=== PATIENT | female | born 1970 | race Caucasian/White ===

== ENCOUNTER 2019-08-19 22:11 | Emergency (ER) | payer SELFPAY ==
[2019-08-19 22:24] VITALS: BP 159/84; PULSE 75; RESP 16; TEMP 36.9; O2SAT 94; BMI 39.4
--- NOTE | 2019-08-19 22:31 | XR_ITS ---
WS: [id number] LEFT SHOULDER: 3 VIEW(S) TECHNIQUE: Internal and external rotation with Y view. HISTORY: injury COMPARISON: None available. Spoke sclerosis along the greater tuberosity may be a small impaction fracture. No displacement. Mild AC joint narrowing. XR/XR shoulder LT min 2V* [id number] IMPRESSION: Possible impaction fracture along the greater tuberosity. No displacement.
--- NOTE | 2019-08-19 22:31 | XR_ITS ---
WS: [id number] LEFT ELBOW: 3 VIEW(S) TECHNIQUE: AP, oblique and lateral. HISTORY: injury COMPARISON: None available. No definite fractures are identified. Imaging is suboptimal due to positioning. There is a lucency th rough the medial condyle which is probably related to overlying soft tissue. Joint effusion cannot be excluded as the lateral projection is not optimal. No soft tissue abnormality. XR/XR elbow LT min 3V* [id number] IMPRESSION: 1. Limited evaluation of the elbow and joint due to positioning. If pain kathleen nues recommend repeat elbow radiographs. 2. No definite fractures.
--- NOTE | 2019-08-20 00:52 | W.ED.FALL ---
HPI - Fall General: Chief Complaint: Fall Stated Complaint: fall/left arm pain Time Seen by Provider: 08/20/19 00:45 Source: patient Mode of arrival: ambulatory Limitations: no limitations History of Present Illness: HPI Narrative: 49-year-old female who states she walked out on her porch and tripped on the flute and fell. Patient states she fell on her left elbow has had elbow pain since then. States pain is sharp in nature and rates it a 6 out of 10. She has mild shoulder pain. She is able to move her arm. She denies hitting her head. Denies any other injuries. complaint: fall Onset (ago): hour(s) Fall from: standing Fall witnessed: yes, by family Place fall occurred: home Loss of consciousness: None Associated symptoms-after fall: Denies abdominal pain, chest pain or headache(s) Review of Systems Const: Denies: fever, chills, body aches or change in appetite Eyes: Denies: blurry vision or eye discomfort ENMT: Denies: throat pain or dental pain Card: Denies: chest pain Resp: Denies: shortness of breath GI: Denies: abdominal pain, nausea, vomiting or diarrhea : Denies: painful urination Musc: Reports: joint pain Skin/Breast: Denies: rash Neuro: Denies: headache Psych: Denies: depression Morgan/Lymph: Denies: easy bruising All/Imm: Denies: hives PFS ED PFSH: Social History Smoking and tobacco status: never smoked Physical Exam Const: COMMON NORMALS: no apparent distress, oriented x3 and healthy appearing HENMT: COMMON NORMALS: normocephalic and head/scalp atraumatic HEAD & SCALP: normocephalic and atraumatic Eye: COMMON NORMALS: PERRL and EOMs intact bilaterally PUPIL: Yes PERRL Neck/C-Spine: COMMON NORMALS: full ROM and supple Chest: COMMONS NORMALS: inspection of chest normal and palpation of chest normal Resp: COMMON NORMALS: normal respiratory effort, no retractions, no use of accessory muscles and clear to auscultation bilaterally AUSCULTATION: clear to auscultation bilaterally Cardio: COMMON NORMALS: regular rate, regular rhythm and no murmurs RATE: regular rate RHYTHM: regular rhythm GI: COMMON NORMALS: normal to inspection, nondistended, normoactive bowel sounds, soft to palpation, non-tender and no masses PALPATION: Yes soft Extremity: COMMON NORMALS: normal to inspection NARRATIVE EXTREMITY EXAM: Slight tenderness over left elbow. Patient has full range of motion with slight pain. No obvious fracture. Distal sensation and pulses intact Neuro: COMMON NORMALS: oriented x3, moves all extremities and no focal motor deficits Psych: COMMON NORMALS: mental status grossly normal, thought process normal and cooperative THOUGHT PROCESS: normal thought process Skin: COMMON NORMALS: no rashes or lesions noted and no wounds GENERAL SKIN EXAM: no rashes or lesions noted Course Vital Signs: Vital signs: Vital Signs Temperature 98.4 F 08/19/19 22:24 Pulse Rate 75 08/19/19 22:24 Respiratory Rate 16 08/19/19 22:24 Blood Pressure 159/84 08/19/19 22:24 Pulse Oximetry 94 08/19/19 22:24 MDM - Fall MDM Narrative: Medical decision making narrative: Patient presents here with elbow contusion from a fall. Patient's x-ray here showed no fracture and she is well-appearing here. Patient's shoulder x-ray is normal as well. Patient is to ice along with Yanick wrap and is to follow-up with primary care doctor in 3 to 5 days return if worsening. Patient understands agrees to plan. Imaging Data^: xr L shoulder: Attestation: I personally reviewed and interpreted this imaging study as follows: My impression: no acute abnormality xr L elbow: Attestation: I personally reviewed and interpreted this imaging study as follows: Radiologist's impression: no acute fx Discharge Plan Discharge Patient Disposition: Home, Self-Care Clinical Impression: Contusion of elbow, left Qualifiers: Encounter type: initial encounter Qualified Code(s): S50.02XA - Contusion of left elbow, initial encounter Condition: Stable Prescriptions: [place] 5-325 mg tablet 1 tab PO Q6H PRN (Reason: pain) Qty: 10 RF: 0 No Action ropinirole 2 mg Tablet Extended Release 24 Hr 2 mg PO DAILY RF: 0 Discharge Orders: Discharge Order (Routine); Ordered 08/20/19 Ordered By: Zuly Rossi Referrals: Jin Reina MD [Primary Care Provider] - 1-3 days Discharge Diet: Advance as tolerated Discharge Activity: Resume usual activity Patient Instructions: Contusion in Adults (ED), Elbow Sprain (ED) Coding Level of Care Code ED Intensive Care Specialist for Uyen Chapman
[2019-08-20] MEDS: HYDROcodone-acetaminophen 5-325 mg Tablet 1 TAB PO (01:06)
[2019-08-20 01:21] VITALS: BP 148/77; PULSE 80; RESP 16; O2SAT 97
== END 2019-08-20 01:29 | disposition home or self-care (01) ==
PROVIDERS: Emergency Provider Emergency Medicine; PCP Family Medicine
DX: S50.02XA Contusion of left elbow, initial encounter (principal); W01.0XXA Fall on same level from slipping, tripping and stumbling without subsequent striking against object, initial encounter
CPT/HCPCS: 12345; 73030; 73080; 99281; 99283

== ENCOUNTER → 2020-04-02 15:00 | Outpatient (BNVA) | payer SELFPAY | PROVIDERS: PCP Family Medicine | DX: M79.672 Pain in left foot (principal) | CPT/HCPCS: 73630 ==

== ENCOUNTER 2020-04-19 15:09 | Emergency (ER) | payer SELFPAY ==
[2020-04-19 15:43] VITALS: BP 136/92; PULSE 91; RESP 14; TEMP 36.2; O2SAT 98; BMI 41.2
[2020-04-19 16:42] VITALS: BP 170/80; PULSE 86; O2SAT 97
--- NOTE | 2020-04-19 16:57 | ED_ITS ---
HPI - Abdominal Pain General: Chief Complaint: Abdominal Pain Stated Complaint: Stomach pains/ cramps Time Seen by Provider: 04/19/20 16:35 History of Present Illness: HPI narrative: The patient is a 50-year-old female who comes to the ER complaining of lower abdominal pain. She says she had a urine test at an urgent care center approximately a week ago which was normal. She says the pain has been approximately a week. She says she has had a hysterectomy and appendix removed when she was a kid and hysterectomy more recently. She says the pain feels like she is having a baby. She has a history of kidney stones as well. Denies nausea, vomiting, and diarrhea MD elicited complaint: abdominal pain Pertinent past history: kidney stones Pain Consistency: colicky Severity: mild Quality: cramping Exacerbating factors: nothing Relieving factors: nothing Associated Symptoms: Reports no associated symptoms; Denies GI cramping and diarrhea Review of Systems General: Reports: 10 or more systems reviewed and unremarkable except in HPI and below Const: Denies: fatigue Eyes: Denies: change in vision, blurry vision or eye redness ENMT: Denies: throat pain, swelling of lips/tongue, ear or mastoid pain or nasal congestion Card: Denies: chest pain, palpitations, irregular heart rhythm, edema, dyspnea on exertion or orthopnea Resp: Denies: dyspnea, productive cough or non-productive cough GI: Denies: abdominal pain, diarrhea or GI cramping : Denies: flank pain, difficulty voiding, urinary frequency or urinary urgency Musc: Denies: neck pain, back pain, extremity pain, joint pain, joint redness, limited range of motion or muscle weakness Skin/Breast: Denies: rash, pruritus, erythema, skin pain or skin tenderness Neuro: Denies: headache(s), numbness in extremities, weakness in extremities, sensory changes, difficulty walking, dizziness, confusion or Slurred speech present Psych: Denies: anxiety or depression Endo: Denies: polyuria All/Imm: Denies: urticaria, throat swelling or tongue swelling PFSH ED PFSH: Social History (Updated 04/02/20 @ 14:44 by GRETCHEN Ambrocio) Smoking and tobacco status: never smoked Alcohol intake: never Physical Exam Const: COMMON NORMALS: no acute distress, average body habitus, patient oriented x3, no limitations, healthy appearing, alert and well nourished GENERAL APPEARANCE: cooperative, comfortable, well kempt and well developed ORIENTATION/CONSCIOUSNESS: Yes awake, Yes oriented to person, Yes oriented to place and Yes oriented to time HENMT: COMMON NORMALS: normocephalic, external ears normal and Normal external nose present HEAD & SCALP: normal to inspection and normocephalic NOSE: Normal external nose present EXTERNAL EAR: Yes external ears normal MOUTH: Normal oral and palatal mucosa present THROAT: posterior oropharynx normal Eye: COMMON NORMALS: Equal, round and reactive pupils present and EOMs intact bilaterally GENERAL EYE: appearance normal, both eyes and all related structures PUPIL: Yes Equal, round and reactive pupils present Neck/C-Spine: COMMON NORMALS: full ROM, no lymphadenopathy, no meningeal signs and no JVD GENERAL: Yes normal visual inspection Lymph: LYMPHATIC: no lymphadenopathy noted Chest: COMMONS NORMALS: normal inspection of the chest and normal palpation of entire chest wall Resp: COMMON NORMALS: normal respiratory effort, No retractions, No use of accessory muscles, clear to auscultation bilaterally and percussion normal EFFORT & INSPECTION: Yes able to speak in complete sentences AUSCULTATION: clear to auscultation bilaterally PERCUSSION: percussion normal Cardio: COMMON NORMALS: no JVD, regular rate, regular rhythm, S1 normal heart sound present, S2 normal heart sound present and Peripheral pulses 2+ throughout RATE: regular rate RHYTHM: regular rhythm HEART SOUNDS: S1 normal heart sound present and S2 normal heart sound present PERIPHERAL PULSES: Peripheral pulses 2+ throughout GI: COMMON NORMALS: Normal to inspection, nondistended, normoactive bowel sounds present, Soft to palpation, non-tender and no masses INSPECTION: Yes normal to inspection PALPATION: Yes Soft to palpation : COMMON NORMALS: Yes no CVA tenderness BLADDER/KIDNEY EXAM: Yes no CVA tenderness Back/Pelvis: COMMON NORMALS: no CVA tenderness, thoracic and lumbar spine normal to inspection, no thoracic nor lumbar tenderness and thoraco-lumbar ROM normal Extremity: COMMON NORMALS: normal to inspection, full ROM, capillary refill normal, no joint enlargement and no pedal edema GENERAL: Yes normal exam except as noted Neuro: COMMON NORMALS: patient oriented x3, CN's II-XII intact bilaterally, moves all extremities, no focal motor deficits, no sensory deficits noted and gait normal SENSORIUM/ORIENTATION: Yes alert, Yes oriented to person, Yes oriented to place and Yes oriented to time MENINGEAL SIGNS: Yes no meningeal signs Psych: COMMON NORMALS: mental status grossly normal, Normal thought process present, cooperative, normal affect and speech normal APPEARANCE: Yes well kempt ATTITUDE: Yes calm SPEECH: Yes normal speech THOUGHT PROCESS: Normal thought process present Skin: COMMON NORMALS: no rashes or lesions noted GENERAL SKIN EXAM: no rashes or lesions noted Course Vital Signs: Vital signs: Vital Signs Temperature 97.1 F L 04/19/20 15:43 Pulse Rate 84 04/19/20 17:30 Respiratory Rate 14 04/19/20 15:43 Blood Pressure 170/80 04/19/20 16:42 Pulse Oximetry 98 04/19/20 17:30 MDM - Abdominal Pain MDM Narrative: Medical decision making narrative: The patient came in with lower left quadrant abdominal pain. CT shows diverticulitis which is consistent with her symptoms. She will be given Cipro and Flagyl and recommended follow-up with her primary care in 3 to 5 days. Return to the ER with worsening symptoms. Lab Data: Labs: Lab Results 04/19/20 04/19/20 04/19/20 Range/Units 17:22 17:22 17:22 WBC 10.1 H (4.0-10.0) 10^3/ uL RBC 4.34 (4.1-5.3) 10^6/u L Hgb 13.0 (11.5-15.3) g/dL Hct 41.2 (37.0-47.0) % MCV 94.9 (81-99) fL MCH 30.0 (28.0-34.0) pg MCHC 31.6 (30.0-36.0) g/dL RDW 13.2 (12.1-15.1) % Plt Count 375 (130-400) 10^3/c mm MPV 9.7 (7.4-10.4) fL Neut % (Auto) 68.1 % Lymph % (Auto) 21.4 % [place] % (Auto) 7.2 % Eos % (Auto) 2.3 % Baso % (Auto) 0.6 % Neut # (Auto) 6.89 (1.8-7.7) 10^3/u L Lymph # (Auto) 2.2 (0.8-4.8) 10^3/u L [place] # (Auto) 0.7 (0.2-0.9) 10^3/u L Eos # (Auto) 0.2 (0.0-0.8) 10^3/u L Baso # (Auto) 0.1 (0.0-0.1) 10^3/u L Nucleated RBC % (a uto) 0 % Nucleated RBCs # 0.0 /100WBC Sodium 139 (136-145) mmol/L Potassium 3.8 (3.5-5.1) mmol/L Chloride 101 (98-107) mmol/L Carbon Dioxide 28 (22-29) mmol/L Anion Gap 13.8 (5-19) BUN 8 (6-20) mg/dL Creatinine 0.6 (0.5-0.9) mg/dL GFR Calculation 105.8 (90-130) mL/min Glucose 143 H (65-115) mg/dL Calculated Osmolal ity 289 (285-295) mOsm/k g Lactate 1.5 (0.5-2.2) mmol/L Calcium 9.3 (8.5-10.5) mg/dL Total Bilirubin 0.3 (0.15-1.2) mg/dL AST 21 (0-32) U/L ALT 20 (0-33) U/L Alkaline Phosphata se 116 H (35-105) IU/L Total Protein 7.5 (6.6-8.7) g/dL Albumin 3.8 (3.5-5.2) g/dL Globulin 3.7 (1.3-4.6) g/dL Lipase 17 (13-60) U/L HCG, Qual (Negative) Urine Color (Yellow) Urine Appearance (CLEAR) Urine pH (5-7) Ur Specific Gravit y (1.005-1.030) Urine Protein (Negative) Urine Glucose (UA) (Normal) Urine Ketones (Negative) Urine Blood (Negative) Urine Nitrate (Negative) Urine Bilirubin (Negative) Urine Urobilinogen (Negative) mg/dL Ur Leukocyte Elaina ase (Negative) Urine RBC (0-2) /hpf Urine WBC (0-5) /hpf Ur Squamous Epith Cells (0-5) /hpf Amorphous Sediment /hpf Urine Bacteria (NONE) /hpf Urine Mucus /hpf 04/19/20 04/19/20 Range/Units 18:15 18:15 WBC (4.0-10.0) 10^3/ uL RBC (4.1-5.3) 10^6/u L Hgb (11.5-15.3) g/dL Hct (37.0-47.0) % MCV (81-99) fL MCH (28.0-34.0) pg MCHC (30.0-36.0) g/dL RDW (12.1-15.1) % Plt Count (130-400) 10^3/c mm MPV (7.4-10.4) fL Neut % (Auto) % Lymph % (Auto) % [place] % (Auto) % Eos % (Auto) % Baso % (Auto) % Neut # (Auto) (1.8-7.7) 10^3/u L Lymph # (Auto) (0.8-4.8) 10^3/u L [place] # (Auto) (0.2-0.9) 10^3/u L Eos # (Auto) (0.0-0.8) 10^3/u L Baso # (Auto) (0.0-0.1) 10^3/u L Nucleated RBC % (a uto) % Nucleated RBCs # /100WBC Sodium (136-145) mmol/L Potassium (3.5-5.1) mmol/L Chloride (98-107) mmol/L Carbon Dioxide (22-29) mmol/L Anion Gap (5-19) BUN (6-20) mg/dL Creatinine (0.5-0.9) mg/dL GFR Calculation (90-130) mL/min Glucose (65-115) mg/dL Calculated Osmolal ity (285-295) mOsm/k g Lactate (0.5-2.2) mmol/L Calcium (8.5-10.5) mg/dL Total Bilirubin (0.15-1.2) mg/dL AST (0-32) U/L ALT (0-33) U/L Alkaline Phosphata se (35-105) IU/L Total Protein (6.6-8.7) g/dL Albumin (3.5-5.2) g/dL Globulin (1.3-4.6) g/dL Lipase (13-60) U/L HCG, Qual Negative (Negative) Urine Color Yellow (Yellow) Urine Appearance Cloudy (CLEAR) Urine pH 7 (5-7) Ur Specific Gravit y 1.015 (1.005-1.030) Urine Protein Neg (Negative) Urine Glucose (UA) Norm (Normal) Urine Ketones Negative (Negative) Urine Blood Neg (Negative) Urine Nitrate Negative (Negative) Urine Bilirubin Neg (Negative) Urine Urobilinogen Norm (Negative) mg/dL Ur Leukocyte Elaina ase Negative (Negative) Urine RBC None (0-2) /hpf Urine WBC None (0-5) /hpf Ur Squamous Epith Cells 0-4 H (0-5) /hpf Amorphous Sediment 2+ /hpf Urine Bacteria Trace (NONE) /hpf Urine Mucus Trace /hpf Discharge Plan Discharge Patient Disposition: Home Clinical Impression: Diverticulitis Condition: Stable Prescriptions: New ciprofloxacin HCl 500 mg tablet 500 mg PO Q12H Qty: 20 RF: 0 Flagyl 500 mg tablet 500 mg PO Q8H 10 Days Qty: 30 RF: 0 No Action ropinirole 2 mg Tablet Extended Release 24 Hr 2 mg PO DAILY RF: 0 Discharge Orders: Discharge ED (Routine); Ordered 04/19/20 Ordered By: Pal Almeida Referrals: Jin Reina MD [Primary Care Provider] - Discharge Diet: Advance as tolerated Discharge Activity: Resume usual activity Patient Instructions: Diverticulitis (ED) Activity Restrictions/Additional Instructions: You have diverticulitis of your colon. Please take antibiotics as directed and follow-up with your primary care physician in 3 to 5 days to monitor improvement of symptoms. Return to the ER with worsening symptoms. Coding Level of Care Code ED Outpatient Admitting Clerk for Bradyg Fwd Exam Comprehensive
[2020-04-19] MEDS: ketorolac 30 mg/mL INJ 15 MG IVP (17:23)
[2020-04-19 17:30] VITALS: PULSE 84; O2SAT 98
[2020-04-19 18:06] LABS: Basophils # 0.1 10^3/uL (0.0-0.1); Basophils % 0.6 %; Eosinophils # 0.2 10^3/uL (0.0-0.8); Eosinophils % 2.3 %; Hematocrit 41.2 % (37.0-47.0); Lymphocytes # 2.2 10^3/uL (0.8-4.8); Lymphocytes % 21.4 %; Mean Corpuscular HGB Conc 31.6 g/dL (30.0-36.0); Mean Corpuscular Volume 94.9 fL (81-99); Mean Platelet Volume 9.7 fL (7.4-10.4); Monocytes # 0.7 10^3/uL (0.2-0.9); Monocytes % 7.2 %; Neutrophils # 6.89 10^3/uL (1.8-7.7); Neutrophils % 68.1 %; Nucleated Red Blood Cells % 0 %; Platelet Count 375 10^3/cmm (130-400); Red Blood Count 4.34 10^6/uL (4.1-5.3); Red Cell Distribution Width 13.2 % (12.1-15.1); White Blood Count 10.1 10^3/uL (4.0-10.0)
[2020-04-19 18:21] LABS: Lactate (Lactic Acid level) 1.5 mmol/L (0.5-2.2)
[2020-04-19 18:24] LABS: Alanine Aminotransferase 20 U/L (0-33); Albumin Level 3.8 g/dL (3.5-5.2); Alkaline Phosphatase 116 IU/L (35-105); Anion Gap 13.8 (5-19); Aspartate Amino Transferase 21 U/L (0-32); Blood Urea Nitrogen 8 mg/dL (6-20); Calcium 9.3 mg/dL (8.5-10.5); Carbon Dioxide 28 mmol/L (22-29); Chloride 101 mmol/L (98-107); Globulin 3.7 g/dL (1.3-4.6); Glomerular Filtration Rate 105.8 mL/min (90-130); Glucose 143 mg/dL (65-115); Lipase 17 U/L (13-60); Osmolality Calculated 289 mOsm/kg (285-295); Potassium 3.8 mmol/L (3.5-5.1); Sodium 139 mmol/L (136-145); Total Bilirubin 0.3 mg/dL (0.15-1.2); Total Protein 7.5 g/dL (6.6-8.7)
[2020-04-19 18:26] LABS: Urine Appearance Cloudy (CLEAR); Urine Color Yellow (Yellow)
[2020-04-19 18:27] LABS: Add Urine Microscopic? YES; Bilirubin Urine Neg (Negative); Blood Urine Neg (Negative); Glucose Urine UA Norm (Normal); HCG Qualitative Urine. Negative (Negative); Ketones Urine Negative (Negative); Leukocyte Esterase Urine Negative (Negative); Nitrate Urine Negative (Negative); Protein Urine Neg (Negative); Specific Gravity, Urine 1.015 (1.005-1.030); Urobilinogen Urine Norm (Negative); pH Urine 7 (5-7)
[2020-04-19 18:41] LABS: Add Urine Culture? No; Amorphous Sediment Urine 2+ /hpf; Bacteria Urine TRACE /hpf; Mucus Urine TRACE /hpf; Squamous Epithelial Cell Urine 0-4 /hpf (0-5)
--- NOTE | 2020-04-19 18:42 | CTR_ITS ---
PROCEDURE INFORMATION: Exam: CT Abdomen And Pelvis With Contrast Exam date and time: 04/19/2020 6:53 PM Age: 50 years old Clinical indication: Abdominal pain; Localized; Lower; Prior surgery; Surgery date: 6+ months; Surgery type: Appy, hyst, gb TECHNIQUE: Imaging protocol: Computed tomography of the abdomen and pelvis with intravenous contrast. Total images: 268 Radiation optimization: All CT scans at this facility use at least one of these dose optimization techniques: automated exposure control; mA and/or kV adjustment per patient size (includes targeted exams where dose is matched to clinical indication); or iterative reconstruction. Contrast material: OMNI 300; Contrast volume: 95 ml; Contrast route: INTRAVENOUS (IV); COMPARISON: CT abdomen pelvis w con* [id number] 07/16/2015 10:28 AM RADIATION DOSE METRICS: Total DLP (mGy-cm): 1874.73 FINDINGS: Lungs: Stable tiny subpleural pulmonary nodules lateral segment right middle lobe, lateral basal segment left lower lobe, and right lower lobe stable since 2015. No follow-up recommended. Liver: Diffuse fatty infiltration of the liver with hepatomegaly. No visible hepatic mass or cystic structure. Gallbladder and bile ducts: Status post cholecystectomy. Pancreas: Pancreas unremarkable. No visible pancreatic ductal ectasia. Spleen: Spleen unremarkable. Adrenal glands: Normal. No mass. Kidneys and ureters: Normal. No hydronephrosis. No visible nephrolithiasis. No visible ureterolithiasis. Stomach and bowel: Examination reveals low-grade uncomplicated acute sigmoid diverticulitis involving the mid sigmoid colon. No diverticular abscess or extraluminal gas. Mild pericolonic fat inflammatory phlegmonous response. Nonobstructive bowel pattern. No visible significant adynamic or reactive ileus. Appendix: Status post appendectomy. Intraperitoneal space: No visible intraperitoneal ascites or pneumoperitoneum. Vasculature: The abdominal aorta is nonaneurysmal. Mild arterial sclerotic disease. Lymph nodes: No current visible evidence of active mesenteric or retroperitoneal lymphadenopathy. Urinary bladder: Urinary bladder unremarkable. Reproductive: Status post hysterectomy. Simple left ovarian cyst. No follow-up recommended. Bones/joints: No visible active or acute osseous pathology. Soft tissues: Obesity. CT/CT abdomen pelvis w con* [id number] IMPRESSION: 1. Examination reveals low-grade uncomplicated acute sigmoid diverticulitis involving the mid sigmoid colon. No diverticular abscess or extraluminal gas. Mild pericolonic fat inflammatory phlegmonous response. 2. Diffuse fatty infiltration of the liver with hepatomegaly. Radiation Dose CTDIVOL = (mGy): DLP = 1874.73 (mGy-cm)
[2020-04-19] MEDS: iohexol 300 mg/mL 100 mL Btl IV (18:59)
[2020-04-19] MEDS: ciprofloxacin 500 mg Tablet PO (19:56)
[2020-04-19] MEDS: metroNIDAZOLE 500 MG Tablet PO (19:56)
[2020-04-19 19:57] VITALS: BP 132/87; PULSE 87; RESP 18; O2SAT 98
== END 2020-04-19 19:58 | disposition home or self-care (01) ==
PROVIDERS: Emergency Provider Family Medicine; PCP Family Medicine
DX: K57.92 Diverticulitis of intestine, part unspecified, without perforation or abscess without bleeding (principal)
CPT/HCPCS: 12345; 74177; 80053; 81000; 81001; 81025; 83605; 83690; 85025; 96374; 99282; 99283; J1885; Q9967

== ENCOUNTER 2020-10-13 22:02 | Emergency (ER) | payer SELFPAY ==
[2020-10-13 22:59] VITALS: BP 155/77; PULSE 83; RESP 18; TEMP 36.8; O2SAT 96; BMI 39.5
--- NOTE | 2020-10-13 23:31 | ED_ITS ---
HPI - Extremity Problem General: Chief complaint: Extremity Problem,Nontraumatic Stated complaint: GEN MALAISE, LEGS CRAMPING, NAUSEA Time Seen by Provider: 10/13/20 23:06 History of Present Illness: HPI Narrative: Patient comes in with bilateral lower extremity pain and restlessness. Patient reports history of restless leg syndrome. Patient was out of her medication yesterday and was not able to take the medicine last night, patient reports a real hard night where she was unable to sleep or get any rest. Patient ended up having to leave work early today due to the pain and discomfort in her legs. Patient went to the pharmacy and picked up her medication took some medicine and then rested until this evening. Patient comes in this evening due to continued discomfort in the lower extremities. Patient was concerned for a blood clot. Patient denies any other injuries or illness. Review of Systems General: Reports: 10 or more systems reviewed and unremarkable except in HPI and below Musc: Reports: other (Bilateral lower leg pain and restlessness) [facility] ED PFSH: Surgical History History of appendectomy History of cholecystectomy History of foot operation History of hysterectomy History of tubal ligation Family History Grandfather Cancer Stroke Father Cancer Chronic kidney disease (CKD) Lung disease Grandmother Diabetes Mother Diabetes Hypertension Social History Smoking and tobacco status: never smoked Alcohol intake: never Physical Exam Const: COMMON NORMALS: no acute distress and patient oriented x3 GENERAL APPEARANCE: cooperative HENMT: COMMON NORMALS: normocephalic, TM's normal bilaterally and Normal external nose present HEAD & SCALP: normal to inspection and normocephalic NOSE: Normal external nose present TYMPANIC MEMBRANE: TM's normal bilaterally MOUTH: Normal oral and palatal mucosa present THROAT: posterior oropharynx normal Eye: GENERAL EYE: appearance normal, both eyes and all related structures Neck/C-Spine: COMMON NORMALS: full ROM Lymph: LYMPHATIC: no lymphadenopathy noted Chest: COMMONS NORMALS: normal inspection of the chest Resp: COMMON NORMALS: normal respiratory effort EFFORT & INSPECTION: Yes able to speak in complete sentences Cardio: COMMON NORMALS: regular rate and regular rhythm RATE: regular rate RHYTHM: regular rhythm GI: COMMON NORMALS: non-tender Back/Pelvis: COMMON NORMALS: thoracic and lumbar spine normal to inspection Extremity: COMMON NORMALS: normal to inspection Neuro: COMMON NORMALS: patient oriented x3 and moves all extremities Psych: COMMON NORMALS: mental status grossly normal and cooperative Skin: COMMON NORMALS: no rashes or lesions noted GENERAL SKIN EXAM: no rashes or lesions noted Course Vital Signs: Vital signs: Vital Signs Temperature 98.2 F 10/13/20 22:59 Pulse Rate 83 10/13/20 22:59 Respiratory Rate 18 10/13/20 22:59 Blood Pressure 155/77 10/13/20 22:59 Pulse Oximetry 96 10/13/20 22:59 MDM - Extremity (Nontraumatic) MDM Narrative: Medical decision making narrative: Patient comes in today with complaints of bilateral lower extremity pain. Patient states that she missed a day of her ropinirole and since then she has aggravating leg pain. Patient was unable to stay at work today due to the pain. No mid spine tenderness was noted on palpation. No paraspinous muscle tenderness was noted. Patient moves extremities well. No signs of redness or swelling is noted to either bilateral lower extremities. Vital signs are normal. Differential diagnosis includes but not limited to neuropathy, restless leg syndrome, electrolyte disturbance. CBC and CMP were unremarkable. Urinalysis was clear. Patient made a comment about some urinary difficulty and that was why urinalysis was performed. Patient was given 1 hydrocodone with improvement of her leg pain and discomfort. Believe patient probably has a flare of her restless leg syndrome or some mild winston ropathy. Recommended patient follow-up with primary care and possible referral to neurology. Patient stated understanding and agreed to plan. Lab Data: Labs: Lab Results 10/13/20 10/13/20 10/13/20 Range/Units 22:49 22:49 23:49 WBC 8.6 (4.0-10.0) 10^3/ uL RBC 4.20 (4.1-5.3) 10^6/u L Hgb 12.6 (11.5-15.3) g/dL Hct 38.9 (37.0-47.0) % MCV 92.6 (81-99) fL MCH 30.0 (28.0-34.0) pg MCHC 32.4 (30.0-36.0) g/dL RDW 13.1 (12.1-15.1) % Plt Count 362 (130-400) 10^3/c mm MPV 9.5 (7.4-10.4) fL Neut % (Auto) 62.3 % Lymph % (Auto) 26.5 % [place] % (Auto) 6.2 % Eos % (Auto) 3.9 % Baso % (Auto) 0.6 % Neut # (Auto) 5.35 (1.8-7.7) 10^3/u L Lymph # (Auto) 2.3 (0.8-4.8) 10^3/u L [place] # (Auto) 0.5 (0.2-0.9) 10^3/u L Eos # (Auto) 0.3 (0.0-0.8) 10^3/u L Baso # (Auto) 0.1 (0.0-0.1) 10^3/u L Nucleated RBC % (a uto) 0 % Nucleated RBCs # 0.0 /100WBC Sodium 135 L (136-145) mmol/L Potassium 4.0 (3.5-5.1) mmol/L Chloride 102 (98-107) mmol/L Carbon Dioxide 25 (22-29) mmol/L Anion Gap 12.0 (5-19) BUN 6 (6-20) mg/dL Creatinine 0.6 (0.5-0.9) mg/dL GFR Calculation 105.8 (90-130) mL/min Glucose 127 H (65-115) mg/dL Calculated Osmolal ity 279 L (285-295) mOsm/k g Calcium 9.1 (8.5-10.5) mg/dL Total Bilirubin 0.4 (0.15-1.2) mg/dL AST 29 (0-32) U/L ALT 27 (0-33) U/L Alkaline Phosphata se 109 H (35-105) IU/L Creatine Kinase 68 (26-192) U/L Total Protein 6.8 (6.6-8.7) g/dL Albumin 3.7 (3.5-5.2) g/dL Globulin 3.1 (1.3-4.6) g/dL Urine Color Yellow (Yellow) Urine Appearance Clear (CLEAR) Urine pH 5 (5-7) Ur Specific Gravit y 1.020 (1.005-1.030) Urine Protein Neg (Negative) Urine Glucose (UA) Norm (Normal) Urine Ketones Negative (Negative) Urine Blood Neg (Negative) Urine Nitrate Negative (Negative) Urine Bilirubin Neg (Negative) Urine Urobilinogen Norm (Negative) mg/dL Ur Leukocyte Elaina ase Negative (Negative) Discharge Plan Discharge Patient Disposition: Home Clinical Impression: Leg pain, bilateral Condition: Stable Prescriptions: Discontinued amoxicillin-pot clavulanate [Augmentin] 875-125 mg tablet 1 tab PO Q12H Qty: 20 RF: 0 No Action ropinirole 2 mg Tablet Extended Release 24 Hr 2 mg PO DAILY RF: 0 Discharge Orders: Discharge ED (Routine); Ordered 10/14/20 Ordered By: Isacc Stallings Referrals: Jin Reina MD [Primary Care Provider] - Discharge Diet: Usual diet Discharge Activity: Increase activity as tolerated Patient Instructions: Musculoskeletal Pain (ED), Opioid Safety Activity Restrictions/Additional Instructions: Maintain normal activity. Use acetaminophen for breakthrough pain. Continue ropinirole as directed. Follow-up with primary care for further instruction and treatment. Return to the emergency room for new concerns. Coding Level of Care Code ED [place] Manager for Uyen Fwd Exam Comprehensive
[2020-10-13 23:54] LABS: Basophils # 0.1 10^3/uL (0.0-0.1); Basophils % 0.6 %; Eosinophils # 0.3 10^3/uL (0.0-0.8); Eosinophils % 3.9 %; Hematocrit 38.9 % (37.0-47.0); Hemoglobin 12.6 g/dL (11.5-15.3); Lymphocytes # 2.3 10^3/uL (0.8-4.8); Lymphocytes % 26.5 %; Mean Corpuscular HGB Conc 32.4 g/dL (30.0-36.0); Mean Corpuscular Volume 92.6 fL (81-99); Mean Platelet Volume 9.5 fL (7.4-10.4); Monocytes # 0.5 10^3/uL (0.2-0.9); Monocytes % 6.2 %; Neutrophils # 5.35 10^3/uL (1.8-7.7); Neutrophils % 62.3 %; Nucleated Red Blood Cells % 0 %; Platelet Count 362 10^3/cmm (130-400); Red Cell Distribution Width 13.1 % (12.1-15.1); White Blood Count 8.6 10^3/uL (4.0-10.0)
[2020-10-13] MEDS: HYDROcodone-acetaminophen 5-325 mg Tablet 1 TAB PO (23:59)
[2020-10-14 00:18] LABS: Alanine Aminotransferase 27 U/L (0-33); Albumin Level 3.7 g/dL (3.5-5.2); Alkaline Phosphatase 109 IU/L (35-105); Aspartate Amino Transferase 29 U/L (0-32); Blood Urea Nitrogen 6 mg/dL (6-20); Calcium 9.1 mg/dL (8.5-10.5); Carbon Dioxide 25 mmol/L (22-29); Chloride 102 mmol/L (98-107); Creatine Phosphokinase 68 U/L (26-192); Globulin 3.1 g/dL (1.3-4.6); Glomerular Filtration Rate 105.8 mL/min (90-130); Glucose 127 mg/dL (65-115); Osmolality Calculated 279 mOsm/kg (285-295); Sodium 135 mmol/L (136-145); Total Bilirubin 0.4 mg/dL (0.15-1.2); Total Protein 6.8 g/dL (6.6-8.7)
[2020-10-14 00:45] LABS: Add Urine Microscopic? NO; Charge for UA Resulting for Rev
[2020-10-14 00:46] LABS: Bilirubin Urine Neg (Negative); Blood Urine Neg (Negative); Glucose Urine UA Norm (Normal); Ketones Urine Negative (Negative); Leukocyte Esterase Urine Negative (Negative); Nitrate Urine Negative (Negative); Protein Urine Neg (Negative); Urine Appearance Clear (CLEAR); Urine Color Yellow (Yellow); Urobilinogen Urine Norm (Negative); pH Urine 5 (5-7)
[2020-10-14 01:21] VITALS: PULSE 79; RESP 18; O2SAT 97
== END 2020-10-14 00:56 | disposition home or self-care (01) ==
PROVIDERS: Emergency Provider Nurse Practitioner Family; PCP Family Medicine
DX: M79.605 Pain in left leg (principal); M79.604 Pain in right leg
CPT/HCPCS: 80053; 81003; 82550; 85025; 99283

== ENCOUNTER 2021-03-19 16:30 | Outpatient (CLI) | payer OTHER, SELFPAY ==
--- NOTE | 2021-03-19 16:50 | MR_ITS ---
WS: [id number] MRI RIGHT KNEE NONCONTRAST TECHNIQUE: Axial PD, coronal PD fat sat, coronal PD, sagittal PD, and sagittal PD fat-sat images obta ined. CLINICAL INFORMATION: RIGHT KNEE PAIN COMPARISON: None. FINDINGS: Distal quadriceps and patella tendons are intact. Mild prepatellar and infrapatellar soft tissue shahida a. Normal ACL and PCL. Complex horizontal and radial tears involving the lateral meniscus extending t o the articular surface. This extends from the periphery to the meniscal root. Normal medial meniscus . Small suprapatellar effusion. Diffuse soft tissue edema about the knee. Lobulated parameniscal cyst involving the anterior lateral meniscus measuring 6 x 7 mm. Additional sm aller satellite cyst. Grade II chondromalacia involving the medial and lateral joint compartments. No subchondral edema. Grade II chondromalacia patella. Medial and lateral patellar retinacula appear in tact. Normal medial and lateral collateral ligaments. Normal popliteal fossa. MR/MR knee RT wo con* [id number] IMPRESSION: 1. Normal ACL and PCL. 2. Horizontal and radial tears involving the lateral meniscus extending from t he periphery to the meniscal root. Associated para meniscal cyst measuring 6 x 7 mm anteriorly. 3. Grade II chondromalacia patella. Grade II chondromalacia medial and lateral joint compartments. No subchondral edema. 4. Small to moderate joint effusion with soft tissue edema about the joint santiago e Outbridge grading:
== END 2021-03-19 16:31 | disposition home or self-care (01) ==
LOC: RADSHAW 16:36
PROVIDERS: PCP Internal Medicine; Visit Provider Nurse Practitioner
DX: M22.41 Chondromalacia patellae, right knee (principal); M25.461 Effusion, right knee; S83.281A Other tear of lateral meniscus, current injury, right knee, initial encounter; X58.XXXA Exposure to other specified factors, initial encounter
CPT/HCPCS: 73721

== ENCOUNTER → 2021-04-05 13:46 | Outpatient (BNVA) | payer OTHER, SELFPAY | PROVIDERS: PCP Internal Medicine; Referring Provider Internal Medicine; Visit Provider Specialist | DX: M25.561 Pain in right knee (principal) | CPT/HCPCS: 73560; 73565 ==

== ENCOUNTER → 2021-05-17 12:00 | Outpatient (BNVA) | payer OTHER, SELFPAY | PROVIDERS: PCP Internal Medicine; Visit Provider Specialist | DX: Z01.812 Encounter for preprocedural laboratory examination (principal) | CPT/HCPCS: 87635 ==

== ENCOUNTER 2021-06-04 07:28 | Day surgery (SDC) | payer OTHER, SELFPAY ==
[2021-06-03 14:06] VITALS: BMI 41.0
[2021-06-04] VITALS (11 sets, daily range): BP systolic 142–173; BP diastolic 76–97; PULSE 66–75; RESP 16–20; TEMP 36.1–36.7; O2SAT 95–100
--- NOTE | 2021-06-04 08:20 | P.HPUD_ITS ---
Surgery/Procedure H&P Update DATE OF PROCEDURE: June 04, 2021 DATE H&P PERFORMED: 06/02/21 H&P UPDATE INFORMATION: I have reviewed H&P completed within last 30 days, I have examined patient prior to procedure, No changes to prior documentation and H&P is in [facility] on date indicated PREOP DIAGNOSIS: Right knee lateral meniscal tear with degenerative arthritis PLANNED PROCEDURE: Operation Date: 05/21/21 11:10 Proposed Procedures p Knee Arthroscopy 47190 M25.569(Right) - Joelle Maldonado MD Operation Date: 06/04/21 09:20 Proposed Procedures p Knee Arthroscopy with lateral menisectomy & debrid. 04294(Right) - Joelle Maldonado MD Related Problem List Diagnoses (1) Lateral meniscus tear: Qualifiers: Tear current or old: current Encounter type: initial encounter Meniscus tear of knee type: complex Laterality: right Qualified Code(s): S83.271A - Complex tear of lateral meniscus, current injury, right knee, initial encounter (2) Obesity, Class II, BMI 35-39.9:
[2021-06-04] MEDS: sodium chloride 0.9% 1,000 ML 30 ML IV (08:39)
[2021-06-04] MEDS: acetaminophen 1,000 MG/100 ML PIGGYBACK 400 MG IV (08:40)
[2021-06-04] MEDS: CELEcoxib 200 mg Capsule 400 MG PO (08:40)
[2021-06-04 08:54] LABS: Basophils # 0.1 10^3/uL (0.0-0.1); Basophils % 0.6 %; Eosinophils # 0.3 10^3/uL (0.0-0.8); Eosinophils % 3.3 %; Hematocrit 38.3 % (37.0-47.0); Hemoglobin 12.2 g/dL (11.5-15.3); Lymphocytes # 2.2 10^3/uL (0.8-4.8); Lymphocytes % 25.4 %; Mean Corpuscular HGB Conc 31.9 g/dL (30.0-36.0); Mean Corpuscular Hemoglobin 29.8 pg (28.0-34.0); Mean Corpuscular Volume 93.4 fl (81-99); Mean Platelet Volume 9.7 fL (7.4-10.4); Monocytes # 0.6 10^3/uL (0.2-0.9); Monocytes % 7.5 %; Neutrophils # 5.39 10^3/uL (1.8-7.7); Neutrophils % 62.8 %; Nucleated Red Blood Cells % 0 %; Platelet Count 331 10^3/cmm (130-400); Red Cell Distribution Width 13.5 % (12.1-15.1); White Blood Count 8.6 10^3/uL (4.0-10.0)
--- NOTE | 2021-06-04 09:02 | ANES.PREANE2 ---
Pre-Anesthetic Assessment Height/Weight: Height 1.75 m Weight 126.099 kg Temp Pulse Resp BP Pulse Ox 98.1 F 75 17 168/97 98 06/04/21 08:10 06/04/21 08:10 06/04/21 08:10 06/04/21 08:10 06/04/21 08:10 Preop Diagnosis: Right knee lateral meniscal tear with degenerative arthritis Operation Date: 05/21/21 11:10 Proposed Procedures p Knee Arthroscopy 74889 M25.569(Right) - Joelle Maldonado MD Operation Date: 06/04/21 09:20 Proposed Procedures p Knee Arthroscopy with lateral menisectomy & debrid. [id number](Right) - Joelle Maldonado MD Familial anesthetic complications: None Was Beta Doris taken within 24 hours: N/A Was Clonidine taken within 24 hours: N/A Last intake: Intake Last Liquid Date 06/03/21 Last Liquid Time 23:30 Last Solid Date 06/03/21 Last Solid Time 20:00 Social No alcohol and No tobacco Exam alert, oriented x 3, clear to auscultation bilaterally and regular rate & rhythm Airway Cervical ROM: within normal limits Mallampati: Class III Dentition: false and partials Pulmonary Sleep Apnea Metabolic Morbid Obesity Anesthetic Plan ASA status: 2 Anesthesia: General Risk of > 500 ml blood loss (7ml/kg in children): No Medications/Allergies Home Medications Medication Instructions Recorded Confirmed Last Taken Type ropinirole 2 mg tablet,extended 2 mg PO DAILY 08/19/19 06/04/21 06/04/21 History release 24 hr diclofenac sodium 25 mg 25 mg PO BID 04/05/21 06/04/21 06/04/21 History tablet,delayed release Allergies Allergy/AdvReac Type Severity Reaction Status Date / Time No Known Drug Allergies Allergy Unknown Verified 06/02/21 09:18 Current Medications Generic Name Dose Route Start Last Admin Trade Name Freq PRN Reason Stop Dose Admin Sodium Chloride 1,000 mls @ 30 mls/hr 06/04/21 08:00 06/04/21 08:39 Sodium Chloride 0.9% IV 06/05/21 07:59 30 mls/hr .Q24H ANABELL Administration PFSH Anesthesia Surgical History History of appendectomy History of cholecystectomy History of foot operation History of hysterectomy History of tubal ligation Family History Grandfather Cancer Stroke Father Cancer Chronic kidney disease (CKD) Lung disease Grandmother Diabetes Mother Diabetes Hypertension Social History Smoking and tobacco status: former smoker Alcohol intake: never Data Anesthesia : 06/04/21 08:35 06/04/21 08:35 Short CBC 06/04/21 Range/Units 08:35 WBC 8.6 (4.0-10.0) 10^3/uL Hgb 12.2 (11.5-15.3) g/dL Hct 38.3 (37.0-47.0) % MCV 93.4 (81-99) fl Plt Count 331 (130-400) 10^3/cmm Neut % (Auto) 62.8 % Neut # (Auto) 5.39 (1.8-7.7) 10^3/uL Cardiac Studies: No Data to Display
[2021-06-04] MEDS: vancomycin 1,000 MG in sodium chloride 0.9% 250 ML 250 MG IV (09:05)
[2021-06-04 09:12] LABS: Alanine Aminotransferase 26 U/L (0-33); Albumin Level 4.2 g/dL (3.5-5.2); Alkaline Phosphatase 138 IU/L (35-105); Anion Gap 14.1 (5-19); Aspartate Amino Transferase 28 U/L (0-32); Blood Urea Nitrogen 10 mg/dL (6-20); Calcium 9.4 mg/dL (8.5-10.5); Carbon Dioxide 25 mmol/L (22-29); Chloride 104 mmol/L (98-107); Globulin 3.5 g/dL (1.3-4.6); Glomerular Filtration Rate 88.2 mL/min (90-130); Glucose 129 mg/dL (65-115); Osmolality Calculated 289 mOsm/kg (285-295); Potassium 4.1 mmol/L (3.5-5.1); Sodium 139 mmol/L (136-145); Total Bilirubin 0.4 mg/dL (0.15-1.2); Total Protein 7.7 g/dL (6.6-8.7)
[2021-06-04 09:35] LABS: Add Urine Microscopic? YES; Bilirubin Urine Neg (Negative); Blood Urine Neg (Negative); Glucose Urine UA Norm (Normal); Ketones Urine Negative (Negative); Leukocyte Esterase Urine Negative (Negative); Nitrate Urine Negative (Negative); Protein Urine Neg (Negative); Urine Appearance Cloudy (CLEAR); Urine Color Yellow (Yellow); Urobilinogen Urine Norm (Negative); pH Urine 5 (5-7)
[2021-06-04 09:36] LABS: Mucus Urine 3+ /hpf; Squamous Epithelial Cell Urine 15-25 /hpf (0-5); WBC Urine RARE /hpf (0-5)
[2021-06-04] MEDS: fentaNYL 50 mcg/mL INJ 2mL IVP (11:44)
--- NOTE | 2021-06-04 11:57 | PM.OP ---
Operative Report Date of procedure: June 04, 2021 Pre-op diagnosis: Right knee lateral meniscal tear with degenerative arthritis Post-op diagnosis: Right knee lateral meniscal tear with degenerative arthritis Procedure done: Right arthroscopic knee surgery with partial medial and lateral meniscectomies with chondroplasty patella and medial femoral condyle Pathology: none sent Surgeon: Joelle Maldonado Fur Liner: [facility] operating room technicians Anesthesia: General (LMA, ASA 2) Estimated blood loss (mL): 5 Tourniquet time (min): 50 (At 250 mmHg) IV fluids (mL): 700 Urine output (mL): 0 (No Irwin) Complications: None Findings: Large lateral meniscal tear with displacement into the joint, degenerative medial meniscal tear primarily anteriorly, chondromalacic changes medial femoral condyle, and chondromalacic changes of the patellofemoral joint both over the patella and trochlear groove. Condition: stable Disposition: PACU (Then return to same-day surgery for discharge home with family) Brief History: This 51-year-old woman presented to my office with complaints of right knee pain. She noted that the pain began in January of last year, and she describes the pain as increasing and worsening over the last couple months. Initially, she had pain to the lateral knee and patellofemoral joint. She noted popping and cracking. Today on presentation, she states she also significant medial pain. Evaluation with x-rays and MRI demonstrated slight degenerative osteoarthritic change within the knee, and the MRI demonstrated a lateral meniscal tear. After evaluation and discussion of the MRI findings, the patient was scheduled for the above procedure. Risks and complications were discussed with her in detail. Questions were answered and consents were signed. Procedure: Patient was brought to the operating theater and after undergoing adequate general anesthesia per LMA, ASA 2, the patient's right lower extremity was prepped and draped in usual fashion utilizing DuraPrep. A tourniquet was placed high on the leg prior to prepping and draping. The tourniquet was elevated prior to commencement of the surgical procedure to 250 mmHg. Total tourniquet time was 50 minutes. Elevation followed prepping and exsanguination. Prior to commencement of the surgical procedure, a surgical pause was performed. At the time of the surgical pause, we identified the site and side of surgery. We also confirmed the patient's identity and appropriate and timely administration of preoperative antibiotics. Preoperative surgical markings were also visualized at this time. Standard arthroscopic portals were utilized including superolateral, inferomedial, and inferolateral portals. The examination commenced in the suprapatellar pouch area where the patient was noted to have chondromalacia of the significant degree on the undersurface of the patella and trochlear groove. There was also synovitis in this area. The arthroscope was then passed in the medial compartment where there was noted to be significant loss of cartilage over the medial femoral condyle. There was also thinning over the medial tibial plateau. There was anterior horn tearing of the medial meniscus as well. The arthroscope was then passed across the notch area where anterior cruciate ligament was visualized and found to be intact, but there was synovitis in this area as well and this was debrided. The scope was passed into the lateral compartment with the knee in a [id number] position. Lateral meniscus was noted to have a large tear with displacement into the notch area. A shaver was used along with basket forceps to debride the lateral meniscal tear. An intra-articular heat wand was also used to address this meniscal tear. Once lateral meniscus had been thus prepared, it was palpated and found to be intact and not displaceable into the knee joint. Scope was then returned to the medial compartment where further debridement of the anterior horn of the medial meniscus was accomplished. A chondroplasty was also performed over the medial femoral condyle. The meniscus was palpated and found to be not displaceable into the knee joint. The arthroscope was then returned to the patellofemoral joint where a chondroplasty was performed of the undersurface of the patella and the trochlear groove. This chondroplasty involved use of the intra-articular shaver as well as the heat wand. Once the patella had been addressed, the scope was passed back through the knee compartments to evaluate for other abnormalities. Finding none, attention was directed to closure. The knee was copiously irrigated and suctioned dry. Following this, each portal was closed with a simple suture followed by Dermabond and Tegaderm. Additionally, the knee was injected with 20 mL of half percent ropivacaine and 8 mg of morphine. Additional 10 mL of ropivacaine was placed about the portals. Sterile dressing was placed consisting of the Tegaderm followed by the Yanick wrap. Patient was returned to Recovery Room in satisfactory condition where he will be discharged home to follow-up with me in the office as scheduled. There were no complications and no specimens.
[2021-06-04] MEDS: HYDROcodone-acetaminophen 5-325 mg Tablet 1 TAB PO (12:17)
[2021-06-04] MEDS: ondansetron 2 mg/ML SDV 2 mL 4 MG IVP (12:23)
--- NOTE | 2021-06-04 12:41 | ANE.PACU2 ---
Inpatient post-anesthesia follow up: Airway intact: Yes Vital signs: Temperature 97.7 F Pulse Rate 70 Respiratory Rate 18 Blood Pressure 142/76 Pulse Oximetry 99 Oxygen Delivery Me thod Room Air Oxygen Flow Rate 8 Fraction of Inspir ed Oxygen Hydration adequate: Yes Nausea and vomiting: No Pain level: 2 Mental status: Baseline
--- NOTE | 2021-06-07 16:49 | PC.NURSE ---
Chart Correction This nurse entered missing data after review by phone with performing nurse, in the following areas: Out of Recovery time, Report Given to, Completed Date/Time/By Whom.
== END 2021-06-04 12:58 | disposition home or self-care (01) ==
PROVIDERS: PCP Internal Medicine; Visit Provider Specialist
PROC: (CPT 29870; principal; 2021-06-04 09:10)
DX: S83.281A Other tear of lateral meniscus, current injury, right knee, initial encounter (principal); S83.241A Other tear of medial meniscus, current injury, right knee, initial encounter; X58.XXXA Exposure to other specified factors, initial encounter; M13.861 Other specified arthritis, right knee; E66.01 Morbid (severe) obesity due to excess calories; Z68.41 Body mass index [BMI] 40.0-44.9, adult; Z87.891 Personal history of nicotine dependence
CPT/HCPCS: 29880; 36415; 80053; 81001; 85025; J1100; J2270; J2405; J2704; J2795; J3010; J3370; J3490; J7030; J7050

== ENCOUNTER 2021-06-24 06:00 | Outpatient (RCR) | payer OTHER, SELFPAY | END 2021-07-08 23:59 | disposition home or self-care (01) | LOC: SPT 06:00 | PROVIDERS: PCP Internal Medicine; Referring Provider Specialist; Visit Provider Specialist | DX: Z47.89 Encounter for other orthopedic aftercare (principal) | CPT/HCPCS: 97110; 97161 ==

== ENCOUNTER 2022-04-21 20:10 | Emergency (ER) | payer OTHER, SELFPAY ==
[2022-04-21 20:18] VITALS: BP 192/97; PULSE 91; RESP 18; TEMP 37.1; O2SAT 97
[2022-04-21 20:56] LABS: Influenza A by IFA negative (Negative); Influenza B by IFA negative (Negative); SARS Covid-2 Antigen negative (Negative)
[2022-04-21 20:57] LABS: Rapid Strep A Test Negative (Negative)
--- NOTE | 2022-04-21 20:57 | W.ED.GENADLT ---
HPI - General Adult General: Chief complaint: General Medical Stated complaint: sore throat; body aches; fever Time Seen by Provider: 04/21/22 20:56 History of Present Illness: 52-year-old female comes in today with complaints of cough, congestion, and sinus pressure starting since yesterday. Patient appears nontoxic. Patient appears unwell. Patient reports that her is ill with cancer and she was concerned and wanted to make sure what type illness she was having. Review of Systems ENMT: Reports: throat pain and nasal discharge Resp: Reports: non-productive cough PFSH ED PFSH: Surgical History History of appendectomy History of cholecystectomy History of foot operation History of hysterectomy History of tubal ligation Family History Grandfather Cancer Stroke Father Cancer Chronic kidney disease (CKD) Lung disease Grandmother Diabetes Mother Diabetes Hypertension Social History Smoking and tobacco status: former smoker Alcohol intake: never Physical Exam Const: COMMON NORMALS: alert HENMT: HEAD & SCALP: normal to inspection Neck/C-Spine: COMMON NORMALS: full ROM Resp: COMMON NORMALS: normal respiratory effort and clear to auscultation bilaterally AUSCULTATION: clear to auscultation bilaterally Cardio: COMMON NORMALS: regular rate and regular rhythm RATE: regular rate RHYTHM: regular rhythm GI: COMMON NORMALS: non-tender Neuro: SENSORIUM/ORIENTATION: Yes alert Skin: COMMON NORMALS: turgor normal GENERAL SKIN EXAM: turgor normal Course Vital Signs: Vital signs: Vital Signs Temperature 98.8 F 04/21/22 20:18 Pulse Rate 91 04/21/22 20:18 Respiratory Rate 18 04/21/22 20:18 Blood Pressure 192/97 04/21/22 20:18 Pulse Oximetry 97 04/21/22 20:18 Oxygen Delivery Me thod 04/21/22 20:18 [facility] - General Adult Medical Decision Making Patient presents with upper respiratory symptoms since yesterday. On exam lungs are clear to auscultation. Patient had some dried blood in the right nares. Patient reported some bleeding after nasal swab. Differential diagnosis includes but not limited to rhinosinusitis, upper respiratory infection, COVID-19, influenza. COVID and influenza test were negative. Rapid strep test was negative. Reviewed exam with patient with recommendations for treatment and follow-up. Patient reported to return to the ER for worsening symptoms or follow-up with primary care for new concerns. Lab Data Laboratory Results Influenza Type A Ag negative (Negative) 04/21/22 20:25 Influenza Type B Ag negative (Negative) 04/21/22 20:25 SARS-CoV-2 Ag (Rapid) negative (Negative) 04/21/22 20:25 Group A Strep Rapid Negative (Negative) 04/21/22 20:25 Discharge Plan Discharge Patient Disposition: Home Clinical Impression: URI (upper respiratory infection) Qualifiers: URI type: unspecified URI Qualified Code(s): J06.9 - Acute upper respiratory infection, unspecified Condition: Stable Prescriptions: New doxycycline monohydrate 100 mg capsule 100 mg PO BID 7 Days Qty: 14 0RF No Action diclofenac sodium 25 mg tablet,delayed release (DR/EC) 25 mg PO BID meloxicam 15 mg tablet 15 mg PO DAILY Qty: 30 1RF ropinirole 2 mg Tablet Extended Release 24 Hr 2 mg PO DAILY Discharge Orders: Discharge ED (Routine); Ordered 04/21/22 Ordered By: Isacc Stallings Referrals: Gallo Vogel DO [Primary Care Provider] - Discharge Diet: Usual diet Discharge Activity: Increase activity as tolerated Patient Instructions: Upper Respiratory Infection (ED) Activity Restrictions/Additional Instructions: Home and rest. Drink plenty of fluids. Use acetaminophen and ibuprofen for discomfort. Avoid the use of antibiotics unless illness lasts longer than 7 days, you have a period of improvement then with worsening symptoms including fever or increasing shortness of breath. Return to ER for new concerns or worsening symptoms. Coding Level of Care Code ED Medical Office Coordinator for Uyen Chapman
[2022-04-21 21:03] VITALS: O2SAT 95
[2022-04-21 21:05] VITALS: BP 157/80; O2SAT 95
[2022-04-21 21:10] VITALS: BP 157/80; O2SAT 92
[2022-04-21 21:15] VITALS: BP 157/80; O2SAT 95
[2022-04-21 21:21] VITALS: BP 157/80; PULSE 90; RESP 19; O2SAT 95
== END 2022-04-21 21:25 | disposition home or self-care (01) ==
PROVIDERS: Emergency Provider Nurse Practitioner Family; PCP Internal Medicine
DX: J06.9 Acute upper respiratory infection, unspecified (principal); Z20.822 Contact with and (suspected) exposure to COVID-19; Z87.891 Personal history of nicotine dependence
CPT/HCPCS: 87081; 87426; 87804; 87880; 99283

== ENCOUNTER 2022-09-20 22:03 | Emergency (ER) | payer OTHER, SELFPAY ==
[2022-09-20 22:08] VITALS: BP 158/95; PULSE 82; RESP 16; TEMP 36.9; O2SAT 98; BMI 39.1
--- NOTE | 2022-09-20 22:08 | XRR_ITS ---
PROCEDURE INFORMATION: Exam: XR Right Hand Exam date and time: 09/20/2022 10:13 PM Age: 52 years old Clinical indication: Pain; Finger(s); Right; Additional info: No injury, pain TECHNIQUE: Imaging protocol: Radiologic exam of the right hand. Views: 3 or more views. COMPARISON: No relevant prior studies available. FINDINGS: Bones/joints: Fifth distal interphalangeal joint moderate osteoarthritis. Soft tissues: Normal. XR/XR hand RT min 3V* [id number] IMPRESSION: Fifth distal interphalangeal joint moderate osteoarthritis.
--- NOTE | 2022-09-20 22:12 | W.ED.EXTPRO ---
HPI - Extremity Problem General: Chief complaint: Extremity Injury, Upper Stated complaint: Right Hand Pinkey Pain Time Seen by Provider: 09/20/22 22:08 History of Present Illness: 52-year-old female comes in today with complaints of tenderness and swelling to the distal right little finger. Patient does not recall injuring the finger. Patient has a history of osteoarthritis in the right knee. Patient denies any chronic medical problems. Patient appears nontoxic. Review of Systems General: Reports: 10 or more systems reviewed and unremarkable except in HPI and below Musc: Reports: extremity pain and extremity swelling PFSH ED PFSH: Surgical History History of appendectomy History of cholecystectomy History of foot operation History of hysterectomy History of tubal ligation Family History Grandfather Cancer Stroke Father Cancer Chronic kidney disease (CKD) Lung disease Grandmother Diabetes Mother Diabetes Hypertension Social History Smoking and tobacco status: former smoker Alcohol intake: never Substance/Drug Use: never Physical Exam Const: COMMON NORMALS: alert HENMT: COMMON NORMALS: normocephalic HEAD & SCALP: normocephalic Neck/C-Spine: COMMON NORMALS: full ROM Resp: COMMON NORMALS: normal respiratory effort Cardio: COMMON NORMALS: regular rate RATE: regular rate Extremity: RIGHT UPPER EXTREMITY: Yes hand & digits (Herberden's nodes to distal joint middle finger) Right hand and digits: Yes inspection, Yes palpation and Yes ROM exam Neuro: SENSORIUM/ORIENTATION: Yes alert Skin: COMMON NORMALS: turgor normal GENERAL SKIN EXAM: turgor normal Course Vital Signs: Vital signs: Vital Signs Temperature 98.4 F 09/20/22 22:08 Pulse Rate 82 09/20/22 22:08 Respiratory Rate 16 09/20/22 22:08 Blood Pressure 158/95 09/20/22 22:08 Pulse Oximetry 98 09/20/22 22:08 Oxygen Delivery Me thod Room Air 09/20/22 22:08 MDM - Extremity (Nontraumatic) Medical Decision Making Patient comes in today for some complaints of pain and swelling to the distal joint of the right little finger. On exam patient does have some enlarged arthritic nodes. Pulses and cap refill is intact. No significant redness or swelling is noted to the joint. Differential diagnosis includes sprain, fracture, arthritis. X-ray was unremarkable. Believe patient probably has an arthritic joint in her little finger. 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 We will give her a dose of steroid IM and a dose of Toradol for her pain and inflammation. Patient be continued on prednisone orally and meloxicam daily. Recommend follow-up with primary care for further instruction. Return to ED for new concerns. Discharge Plan Discharge Patient Disposition: Home Clinical Impression: Osteoarthritis, hand Qualifiers: Osteoarthritis type: unspecified Laterality: bilateral Qualified Code(s): M19.041 - Primary osteoarthritis, right hand Condition: Stable Prescriptions: New prednisone 20 mg tablet 20 mg PO DAILY 3 Days Qty: 3 0RF Continued meloxicam 15 mg tablet 15 mg PO DAILY Qty: 30 1RF No Action diclofenac sodium 25 mg tablet,delayed release (DR/EC) 25 mg PO BID ropinirole 2 mg Tablet Extended Release 24 Hr 2 mg PO DAILY Discharge Orders: Discharge ED (Routine); Ordered 09/20/22 Ordered By: Isacc Stallings Referrals: Gallo Vogel DO [Primary Care Provider] - Discharge Diet: Usual diet Discharge Activity: Increase activity as tolerated Patient Instructions: Osteoarthritis (ED) Activity Restrictions/Additional Instructions: You have arthritis of the hands. Sometimes he will have flares where there will cause swelling of the joint which causes abnormalities in the appearance. We have patient on prednisone 20 mg daily for the next 3 days to encourage further inflammation control. Restart taking meloxicam 15 mg daily. Follow-up with primary care for further instruction and evaluation as needed. Coding Level of Care Code ED Textile Cutting Machine Operator for Uyen Chapman
[2022-09-20] MEDS: ketorolac 30 mg/mL INJ IM (22:32)
[2022-09-20] MEDS: dexamethasone 10 mg/mL INJ IM (22:32)
== END 2022-09-20 22:37 | disposition home or self-care (01) ==
PROVIDERS: Emergency Provider Nurse Practitioner Family; PCP Internal Medicine
DX: M19.041 Primary osteoarthritis, right hand (principal)
CPT/HCPCS: 73130; 96372; 99284; J1100; J1885

== ENCOUNTER 2022-11-28 10:33 | Outpatient (RCR) | payer OTHER, SELFPAY | END 2022-12-08 23:59 | disposition home or self-care (01) | LOC: SPT 10:33 | PROVIDERS: Visit Provider Orthopaedic Surgery | DX: Z47.1 Aftercare following joint replacement surgery (principal); Z96.651 Presence of right artificial knee joint | CPT/HCPCS: 97110; 97161 ==

== ENCOUNTER 2022-12-09 06:00 | Outpatient (RCR) | payer OTHER, SELFPAY | END 2023-01-07 23:59 | disposition home or self-care (01) | LOC: SPT 06:00 | PROVIDERS: Visit Provider Orthopaedic Surgery | DX: Z47.1 Aftercare following joint replacement surgery (principal); Z96.651 Presence of right artificial knee joint | CPT/HCPCS: 97110 ==

== ENCOUNTER 2023-01-08 06:00 | Outpatient (RCR) | payer OTHER, SELFPAY | END 2023-02-06 13:34 | disposition home or self-care (01) | LOC: SPT 06:00 | PROVIDERS: Visit Provider Orthopaedic Surgery | DX: Z47.1 Aftercare following joint replacement surgery (principal); Z96.651 Presence of right artificial knee joint | CPT/HCPCS: 97110 ==

== ENCOUNTER 2023-02-20 08:48 | Emergency (ER) | payer OTHER, SELFPAY ==
[2023-02-20 09:00] VITALS: BP 162/92; PULSE 73; RESP 16; TEMP 36.4; O2SAT 97; BMI 38.4
--- NOTE | 2023-02-20 09:13 | XR_ITS ---
WS: [id number] Exam: XR chest 1V portable [id number] Date/Time of Exam: 02/20/2023 9:19 AM Reason For Exam: syncope Comparison 09/30/2018. Findings: The lungs are clear and fully expanded. Costophrenic angles are sharp. No infiltrates. Bronchovascula r relief appears normal. Cardiac silhouette is unremarkable. Bony elements are intact. IMPRESSION: Unremarkable chest radiograph.
--- NOTE | 2023-02-20 09:14 | ED_ITS ---
HPI - Weakness General: Chief complaint: Weakness Stated complaint: Nausea,weakness,headache Time Seen by Provider: 02/20/23 08:57 PFSH ED PFSH: Surgical History History of appendectomy History of cholecystectomy History of foot operation History of hysterectomy History of tubal ligation Family History Grandfather Cancer Stroke Father Cancer Chronic kidney disease (CKD) Lung disease Grandmother Diabetes Mother Diabetes Hypertension Social History Smoking and tobacco/nicotine status: former use of tobacco/nicotine Alcohol intake: never Substance/Drug Use: never Course Vital Signs: Vital signs: Vital Signs Temperature 97.6 F 02/20/23 09:00 Pulse Rate 73 02/20/23 09:00 Respiratory Rate 16 02/20/23 09:00 Blood Pressure 162/92 02/20/23 09:00 Pulse Oximetry 97 02/20/23 09:00 Oxygen Delivery Me thod Room Air 02/20/23 09:00 Discharge Plan Discharge Condition: Stable Prescriptions: No Action diclofenac sodium 25 mg tablet,delayed release (DR/EC) 25 mg PO BID ropinirole 2 mg Tablet Extended Release 24 Hr 2 mg PO DAILY meloxicam 15 mg tablet 15 mg PO DAILY Qty: 30 1RF Referrals: Gallo Vogel DO [Primary Care Provider] - Coding Level of Care Code ED Environmental Conflict Manager for Uyen Chapman
--- NOTE | 2023-02-20 09:14 | W.ED.SYNCOPE ---
HPI - Syncope General: Chief Complaint: Weakness Stated Complaint: Nausea,weakness,headache Time Seen by Provider: 02/20/23 08:57 Source: patient Mode of arrival: ambulatory Limitations: no limitations History of Present Illness: Patient is a nice 53-year-old female presents to ED today along with family for evaluation of a presyncopal episode. According to patient she had just got to work and was seated at her computer desk when she began feeling flushed. Patient states that she then began feeling dizzy and nauseous and can tell that she was going to pass out . She states she called a coworker to her office who told her she was white as a ghost and had her lay on the floor. Patient states while laying on the floor with a fan on her she did begin to feel better but states when she sat up she got dizzy and flushed again. Coworker called family who brought her to the emergency department. Patient states upon arrival to the ED she is asymptomatic. Family states she has had similar episodes before although patient herself does not recall this. Family is concerned as she lost her a few months ago. They states she has not been eating or sleeping well since the loss. She states she sees a counselor/therapist. Patient currently denies chest pain, shortness of breath, difficulty breathing, or palpitations. She has had intermittent palpitations in the past and has received cardiology evaluation for this. She does state over the past week she has started a new medication, Myrbetriq. She states after taking this medication a week ago she developed a headache so she stopped it approximately 2 days later and headache did improve. complaint: felt faint and almost passed out Onset (ago): hour(s) -: minutes(s) Witnessed: Yes - by Bystander Context: at rest and new medication (Myrbetriq) Injuries sustained associated with event: none Associated symptoms: Reports headache(s); Deny abdominal pain, chest pain, fever(s), lightheadedness, nausea or vertigo Treatments prior to arrival: none Review of Systems Const: Denies: fever(s), chills, body aches, fatigue or malaise Eyes: Denies: change in vision or blurry vision Card: Reports: palpitations (chronic-has had cardiology evaluation for this), syncope and pre-syncope; Denies: chest pain, irregular heart rhythm, edema, swelling of feet/ankles, lightheadedness, dyspnea on exertion, orthopnea, leg pain with exertion or acrocyanosis Resp: Denies: dyspnea, productive cough or pain on inspiration GI: Denies: abdominal pain, nausea, vomiting, heartburn or diarrhea : Denies: flank pain, difficulty voiding, dysuria, urinary frequency, urinary urgency or urinary hesitancy Musc: Denies: neck pain, back pain, extremity pain, extremity swelling or joint pain Skin/Breast: Denies: rash Neuro: Reports: headache(s); Denies: numbness in extremities, weakness in extremities, sensory changes, lack of coordination, difficulty walking, frequent falls, vertigo, confusion, behavioral changes, Slurred speech present, difficulty communicating thoughts or seizure-like activity Psych: Reports: anxiety and depression PFSH ED PFSH: Surgical History History of appendectomy History of cholecystectomy History of foot operation History of hysterectomy History of tubal ligation Family History Grandfather Cancer Stroke Father Cancer Chronic kidney disease (CKD) Lung disease Grandmother Diabetes Mother Diabetes Hypertension Social History Smoking and tobacco/nicotine status: former use of tobacco/nicotine Alcohol intake: never Substance/Drug Use: never Physical Exam Const: COMMON NORMALS: no acute distress, patient oriented x3, no limitations, alert and well nourished GENERAL APPEARANCE: cooperative NUTRITIONAL APPEARANCE: obese ORIENTATION/CONSCIOUSNESS: Yes awake, Yes oriented to person, Yes oriented to place and Yes oriented to time HENMT: COMMON NORMALS: normocephalic and atraumatic HEAD & SCALP: normal to inspection, normocephalic and atraumatic Eye: GENERAL EYE: appearance normal, both eyes and all related structures Neck/C-Spine: COMMON NORMALS: full ROM, no lymphadenopathy, supple and no meningeal signs Chest: COMMONS NORMALS: normal inspection of the chest Resp: COMMON NORMALS: normal respiratory effort and clear to auscultation bilaterally AUSCULTATION: clear to auscultation bilaterally Cardio: COMMON NORMALS: regular rate and regular rhythm RATE: regular rate RHYTHM: regular rhythm GI: COMMON NORMALS: Normal to inspection, nondistended, normoactive bowel sounds present, Soft to palpation, non-tender, No hepatosplenomegaly present and no masses PALPATION: Yes Soft to palpation and Yes No hepatosplenomegaly present : COMMON NORMALS: Yes no CVA tenderness BLADDER/KIDNEY EXAM: Yes no CVA tenderness Back/Pelvis: COMMON NORMALS: no CVA tenderness, thoracic and lumbar spine normal to inspection, no thoracic nor lumbar tenderness and thoraco-lumbar ROM normal Extremity: COMMON NORMALS: normal to inspection GENERAL: Yes normal exam except as noted Neuro: CHARMAINE COMA SCALE: document GCS findings Charmaine coma scale eye opening: Spontaneous [place] coma scale verbal response: Orientated [place] coma scale motor response: Obey commands Charmaine coma scale total score: 15 COMMON NORMALS: patient oriented x3, moves all extremities, no focal motor deficits and no sensory deficits noted SENSORIUM/ORIENTATION: Yes alert, Yes oriented to person, Yes oriented to place and Yes oriented to time MENINGEAL SIGNS: Yes no meningeal signs Skin: COMMON NORMALS: no rashes or lesions noted GENERAL SKIN EXAM: no rashes or lesions noted Course Vital Signs: Vital signs: Vital Signs Temperature 97.6 F 02/20/23 09:00 Pulse Rate 73 02/20/23 11:43 Respiratory Rate 16 02/20/23 09:00 Blood Pressure 150/93 02/20/23 11:43 Pulse Oximetry 99 02/20/23 11:43 Oxygen Delivery Me thod Room Air 02/20/23 11:43 MDM - Syncope Medical Decision Making Patient's vital signs are stable. Her work-up today including baseline and repeat troponins are negative. EKGs showing no abnormal arrhythmias or ischemia. UA does show overwhelming evidence for urinary tract infection with 2+ blood, 2+ leukocytes, greater than 100 WBCs. Patient has no flank pain or abdominal pain at this time. She does report chronic burning with urination. We will go ahead and culture her urine. She was given IM Rocephin prior to discharge will be placed on Cipro. Recommend close follow-up with her primary care provider. Strict return ED precautions given. Lab Data 02/20/23 09:27 02/20/23 09:27 Laboratory Results WBC 9.30 10^3/uL (3.29-11.43) 02/20/23 09:27 RBC 4.39 10^6/uL (3.85-5.65) 02/20/23 09:27 Hgb 12.70 g/dL (11.27-16.99) 02/20/23: Hct 40.1 % (36-47) 02/20/23: MCV 91.3 fl (85-98) 02/20/23 09: MCH 28.9 pg (27-33) 02/20/23: MCHC 31.7 g/dL (30-55) 02/20/23: RDW 13.9 % (12.1-15.1) 02/20/23: Plt Count 338 10^3/cmm (157-399) 02/20/23: MPV 9.1 fL (7.4-10.4) 02/20/23: Neut % (Auto) 62.9 % 02/20/23: Lymph % (Auto) 26.2 % 02/20/23: [place] % (Auto) 6.8 % 02/20/23: Eos % (Auto) 3.2 % 02/20/23: Baso % (Auto) 0.5 % 02/20/23: Neut # (Auto) 5.84 10^3/uL (1.8-7.7) 02/20/23: Lymph # (Auto) 2.4 10^3/uL (0.8-4.8) 02/20/23: [place] # (Auto) 0.6 10^3/uL (0.2-0.9) 02/20/23: Eos # (Auto) 0.3 10^3/uL (0.0-0.8) 02/20/23: Baso # (Auto) 0.1 10^3/uL (0.0-0.1) 02/20/23: Nucleated RBC % (auto) 0 % 02/20/23 Nucleated RBCs # 0.0 /100WBC 02/20/23 09: Sodium 139 mmol/L (136-145) 02/20/23 09: Potassium 4.5 mmol/L (3.5-5.1) 02/20/23: Chloride 103 mmol/L (98-107) 02/20/23 09:27 Carbon Dioxide 27 mmol/L (22-29) 02/20/23 09:27 Anion Gap 13.5 (5-19) 02/20/23 09:27 BUN 11 mg/dL (6-20) 02/20/23 09:27 Creatinine 0.6 mg/dL (0.5-0.9) 02/20/23 09:27 GFR Calculation 104.6 mL/min (90-130) 02/20/23 09:27 Glucose 133 mg/dL (65-115) H 02/20/23 09:27 Calculated Osmolality 289 mOsm/kg (285-295) 02/20/23 09:27 Calcium 9.9 mg/dL (8.5-10.5) 02/20/23 09:27 Total Bilirubin 0.3 mg/dL (0.15-1.2) 02/20/23 09:27 AST 16 U/L (0-32) 02/20/23 09:27 ALT 18 U/L (0-33) 02/20/23 09:27 Alkaline Phosphatase 110 U/L (35-105) H 02/20/23 09:27 Troponin T Baseline 7 ng/L (0-10) 02/20/23 09:27 Troponin T 120 Minute 6.13 ng/L (0-10) 02/20/23 11: Delta Troponin T -0.87 ABS# (0-10) L 02/20/23 11:19 Total Protein 7.0 g/dL (6.6-8.7) 02/20/23 09:27 Albumin 4.1 g/dL (3.5-5.2) 02/20/23 09:27 Globulin 2.9 g/dL (1.3-4.6) 02/20/23 09:27 TSH 3.22 uIU/mL (0.27-4.20) 02/20/23 09:27 Urine Color Yellow (Yellow) 02/20/23 09:57 Urine Appearance Hazy (CLEAR) A 02/20/23 09:57 Urine pH 5 (5-7) 02/20/23 09:57 Ur Specific [place] 1.030 (1.005-1.030) 02/20/23 09:57 Urine Protein 2+ (Negative) H 02/20/23 09:57 Urine Glucose (UA) Norm (Normal) 02/20/23 09:57 Urine Ketones 1+ (Negative) H 02/20/23 09:57 Urine Blood 2+ (Negative) H 02/20/23 09:57 Urine Nitrate Negative (Negative) 02/20/23 09:57 Urine Bilirubin 1+ (Negative) H 02/20/23 09:57 Urine Urobilinogen 1 mg/dL (Negative) H 02/20/23 09:57 Ur Leukocyte Esterase 2+ (Negative) H 02/20/23 09:57 Urine RBC 0-4 /hpf (0-2) H 02/20/23 09:57 Urine WBC >100 /hpf (0-5) H 02/20/23 09:57 Ur Squamous Epith Cells 5-10 /hpf (0-5) H 02/20/23 09:57 Calcium Oxalate Crystal >100 /hpf H 02/20/23 09:57 Amorphous Sediment Not Reportable 02/20/23 09:57 Urine Bacteria 1+ /hpf (NONE) H 02/20/23 09:57 Urine Mucus Trace /hpf 02/20/23 09:57 All radiology interpretation(s) finalized by discharge Discharge Plan Discharge Patient Disposition: Home Clinical Impression: Pre-syncope Acute cystitis Qualifiers: Hematuria presence: with hematuria Qualified Code(s): N30.01 - Acute cystitis with hematuria Condition: Stable Prescriptions: New Cipro 500 mg tablet 500 mg PO Q12H Qty: 14 0RF ondansetron 4 mg tablet,disintegrating 4 mg PO Q8H PRN (Reason: nausea and vomiting) Qty: 14 0RF No Action ropinirole 1 mg tablet See Rx Instructions .ROUTE .COMPLEX Rx Instructions: TAKE ONE TABLET BY MOUTH IN THE MORNING and TAKE 2 TABLETS IN THE EVENING tizanidine 4 mg tablet 4 mg PO Q6H PRN (Reason: Spasms) Myrbetriq 25 mg Tablet Extended Release 24 Hr 25 mg PO DAILY meloxicam 15 mg tablet 15 mg PO QAM Multi-Vitamins Tablet 2 tab PO QAM Discharge Orders: Discharge ED (Routine); Ordered 02/20/23 Ordered By: Cynthia Quiros Referrals: Gallo Vogel, [Primary Care Provider] - Activity Restrictions/Additional Instructions: As we discussed we will culture your urine as urine analysis was consistent with a urinary tract infection. We are placing you on antibiotics and nausea medications. You need to return to the emergency department for severe flank pain, repetitive episodes of nausea/vomiting, inability to hold down your antibiotics, repeat episodes of presyncope/syncope, chest pain, shortness of breath, difficulty breathing, palpitations, fevers, or any other concerns you may have. Otherwise I would like you to follow-up with primary care this week. Coding Level of Care Code ED Bow String Maker for Uyen Chapman
--- NOTE | 2023-02-20 09:21 | ECG_ITS ---
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 Measurements Intervals [place] Rate: 72 P: 38 IN: 180 QRS: 27 QRSD: 92 T: 86 QT: 386 QTc: 425 Interpretive Statements SINUS RHYTHM LOW QRS VOLTAGE IN PRECORDIAL LEADS [QRS DEFLECTION < 1.0 mV IN CHEST LEADS] NONSPECIFIC T-WAVE ABNORMALITY Compared to ECG 09/30/2018 22:15:55 Low QRS voltage now present T-wave abnormality now present Electronically Signed On 02-20-2023 18:34:30 ROLLED HAM LACER by Olivia Humphries M.D. [id number]
[2023-02-20 09:40] LABS: Basophils # 0.1 10^3/uL (0.0-0.1); Basophils % 0.5 %; Eosinophils # 0.3 10^3/uL (0.0-0.8); Eosinophils % 3.2 %; Hematocrit 40.1 % (36-47); Lymphocytes # 2.4 10^3/uL (0.8-4.8); Lymphocytes % 26.2 %; Mean Corpuscular HGB Conc 31.7 g/dL (30-55); Mean Corpuscular Hemoglobin 28.9 pg (27-33); Mean Corpuscular Volume 91.3 fl (85-98); Mean Platelet Volume 9.1 fL (7.4-10.4); Monocytes # 0.6 10^3/uL (0.2-0.9); Monocytes % 6.8 %; Neutrophils # 5.84 10^3/uL (1.8-7.7); Neutrophils % 62.9 %; Nucleated Red Blood Cells % 0 %; Platelet Count 338 10^3/cmm (157-399); Red Blood Count 4.39 10^6/uL (3.85-5.65); Red Cell Distribution Width 13.9 % (12.1-15.1)
[2023-02-20] MEDS: sodium chloride 0.9% 1,000 ML 999 ML IV (09:53)
[2023-02-20 09:55] VITALS: BP 135/89; PULSE 81; O2SAT 98
[2023-02-20 09:58] LABS: Troponin(5th) Baseline 7 ng/L (0-10)
[2023-02-20 10:05] LABS: Alanine Aminotransferase 18 U/L (0-33); Albumin Level 4.1 g/dL (3.5-5.2); Alkaline Phosphatase 110 U/L (35-105); Anion Gap 13.5 (5-19); Aspartate Amino Transferase 16 U/L (0-32); Blood Urea Nitrogen 11 mg/dL (6-20); Calcium 9.9 mg/dL (8.5-10.5); Carbon Dioxide 27 mmol/L (22-29); Chloride 103 mmol/L (98-107); Creatinine Clr Calc Pharmacy 148.7449; Globulin 2.9 g/dL (1.3-4.6); Glomerular Filtration Rate 104.6 mL/min (90-130); Glucose 133 mg/dL (65-115); Osmolality Calculated 289 mOsm/kg (285-295); Potassium 4.5 mmol/L (3.5-5.1); Sodium 139 mmol/L (136-145); Thyroid Stimulating Hormone 3.22 uIU/mL (0.27-4.20); Total Bilirubin 0.3 mg/dL (0.15-1.2)
[2023-02-20 10:40] LABS: Add Urine Microscopic? YES; Bilirubin Urine 1+ (Negative); Blood Urine 2+ (Negative); Glucose Urine UA Norm (Normal); Ketones Urine 1+ (Negative); Leukocyte Esterase Urine 2+ (Negative); Nitrate Urine Negative (Negative); Protein Urine 2+ (Negative); Urine Appearance Hazy (CLEAR); Urine Color Yellow (Yellow); Urobilinogen Urine 1 mg/dL (Negative); pH Urine 5 (5-7)
[2023-02-20 10:46] LABS: Add Urine Culture? Yes; Bacteria Urine 1+ /hpf; Calcium Oxalate Crystals Urine >100 /hpf; Mucus Urine TRACE /hpf; RBC Urine 0-4 /hpf (0-2); WBC Urine >100 /hpf (0-5)
--- NOTE | 2023-02-20 11:13 | ECG_ITS ---
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 Measurements Intervals [place] Rate: 69 P: 33 LA: 183 QRS: 19 QRSD: 88 T: 72 QT: 385 QTc: 413 Interpretive Statements SINUS RHYTHM NONSPECIFIC T-WAVE ABNORMALITY Compared to ECG 02/20/2023 09:21:40 No significant changes Electronically Signed On 02-21-2023 1:52:42 21 DEALER by Olivia Humphries M.D. [id number]
[2023-02-20] MEDS: cefTRIAXone 1,000 MG in water for injection-sterile 2.1 ML 2.1 MG IM (11:33)
[2023-02-20] MEDS: ondansetron 2 mg/ML SDV 2 mL 4 MG IVP (11:33)
[2023-02-20 11:43] VITALS: BP 150/93; PULSE 73; O2SAT 99
[2023-02-20 11:47] LABS: Troponin 5 2HR 6.13 ng/L (0-10); Troponin 5 2HR Delta -0.87 ABS# (0-10)
== END 2023-02-20 12:05 | disposition home or self-care (01) ==
PROVIDERS: Emergency Provider Physician Assistant; PCP Internal Medicine
DX: N30.01 Acute cystitis with hematuria (principal); R55 Syncope and collapse; Z87.891 Personal history of nicotine dependence
CPT/HCPCS: 36415; 71045; 80053; 81001; 84443; 84484; 85025; 87086; 93005; 96361; 96372; 96374; 99285; J0696; J2405; J7030

== ENCOUNTER → 2023-09-14 08:09 | Outpatient (BNVA) | payer OTHER, SELFPAY | PROVIDERS: PCP Internal Medicine; Visit Provider Podiatrist Foot & Ankle Surgery | DX: M79.672 Pain in left foot (principal); M21.6X2 Other acquired deformities of left foot; M19.072 Primary osteoarthritis, left ankle and foot | CPT/HCPCS: 73630 ==

== ENCOUNTER 2024-01-13 15:35 | Emergency (ER) | payer OTHER, SELFPAY ==
[2024-01-13 15:55] VITALS: BP 136/73; PULSE 92; RESP 16; TEMP 36.9; O2SAT 94; BMI 42.7
--- NOTE | 2024-01-13 19:36 | CTR_ITS ---
PROCEDURE INFORMATION: Exam: CT Pelvis Without Contrast, Skeleton Exam date and time: 01/13/2024 8:15 PM Age: 54 years old Clinical indication: Pain and injury or trauma; Blunt trauma (contusions or hematomas); Right hip; Prior surgery; Surgery date: 6+ months; Surgery type: Appy. Hysterectomy; Patient HX: Patient sustained a fall two days ago and is having RT sciatic hip pain. ; Additional info: Trauma, pain hip and pelvis right side TECHNIQUE: Imaging protocol: Computed tomography of the pelvis without contrast. Exam focused on the skeleton. Radiation optimization: All CT scans at this facility use at least one of these dose optimization techniques: automated exposure control; mA and/or kV adjustment per patient size (includes targeted exams where dose is matched to clinical indication); or iterative reconstruction. COMPARISON: CT abdomen pelvis w con* [id number] 04/19/2020 6:50 PM RADIATION DOSE METRICS: Total DLP (mGy-cm): 797.46 FINDINGS: Bones/joints: Unremarkable. No acute fracture. No dislocation. Soft tissues: Unremarkable. CT/CT bony pelvis [id number] IMPRESSION: No acute findings.
--- NOTE | 2024-01-13 19:41 | W.ED.EXTPRO ---
HPI - Extremity Problem General: Chief complaint: Extremity Injury, Lower Stated complaint: right hip pain - fell 2 days ago Time Seen by Provider: 01/13/24 19:26 History of Present Illness: 54-year-old female reports she has been having progressive right hip pain for quite a long time. She reports yesterday her right hip locked up on her while she was walking. She reports after it locked up she felt like she was going to fall and took a step forward. Her right foot ended up on a blanket. The blanket slipped on the tile underneath it. She fell to the ground. It happened so quickly she is not sure if she hit her right hip or if she simply injured it from the strain or whether it dislocated or something when it locked up. All in all, she does not know what exactly happened but it has been bothering her pretty badly ever since. She does have a history of arthritis in other joints. She reports she has not had any specific workup for her hip. Related Data Home Medications Medication Instructions Recorded Confirmed meloxicam 15 mg tablet 15 mg PO QAM 02/20/23 04/19/23 mirabegron 25 mg tablet,extended 25 mg PO DAILY 02/20/23 04/19/23 release 24 hr (Myrbetriq) multivitamin 2 tab PO QAM 02/20/23 04/19/23 ropinirole 1 mg tablet See Rx Instructions .Route .COMPLEX 02/20/23 04/19/23 tizanidine 4 mg tablet 4 mg PO Q6H PRN Spasms 02/20/23 04/19/23 duloxetine 40 mg capsule,delayed 40 mg PO DAILY 09/14/23 release Previous Rx's Medication Instructions Recorded ondansetron 4 mg disintegrating 4 mg PO Q8H PRN nausea and 02/20/23 tablet vomiting #14 tabs hydrocodone 5 mg-acetaminophen 325 1 tab PO Q8H PRN pain (scale score 01/13/24 mg tablet 7-10) #20 tabs Allergies Allergy/AdvReac Type Severity Reaction Status Date / Time No Known Drug Allergies Allergy Unknown Verified 09/14/23 08:08 Review of Systems General: Reports: 10 or more systems reviewed and unremarkable except in HPI and below PFSH ED PFSH: Surgical History History of appendectomy History of cholecystectomy History of foot operation History of hysterectomy History of tubal ligation Family History Grandfather Cancer Stroke Father Cancer Chronic kidney disease (CKD) Lung disease Grandmother Diabetes Mother Diabetes Hypertension Social History Smoking and tobacco/nicotine status: former use of tobacco/nicotine Alcohol intake: never Substance/Drug Use: never Physical Exam Narrative: EXAM NARRATIVE: Morbidly obese. Laying on the left lateral decubitus position. Tenderness in the right buttock. No direct tenderness over the SI joints, pubic symphysis, or greater trochanter of the right hip. She does have pain with range of motion of the right hip. This seems to be mostly soft tissue although an underlying bony injury cannot be ruled out. She is neurologically intact throughout her right lower extremity to light touch but reports some tingling subjectively going down to her foot. Const: COMMON NORMALS: no limitations, alert and well nourished EXAM LIMITATIONS: no altered mental status Neck/C-Spine: GENERAL: Yes normal visual inspection and Yes trachea midline Resp: COMMON NORMALS: normal respiratory effort and No use of accessory muscles Cardio: COMMON NORMALS: regular rate RATE: regular rate GI: COMMON NORMALS: Soft to palpation and non-tender PALPATION: Yes Soft to palpation and No Guarding due to palpation present (GI) Extremity: COMMON NORMALS: normal to inspection Neuro: COMMON NORMALS: moves all extremities, no focal motor deficits and no sensory deficits noted SENSORIUM/ORIENTATION: Yes alert SPEECH: speech normal Psych: COMMON NORMALS: mental status grossly normal, Normal thought process present, cooperative, normal affect and speech normal SPEECH: Yes normal speech THOUGHT PROCESS: Normal thought process present Course Vital Signs: Vital signs: Vital Signs Temperature 98.4 F 01/13/24 15:55 Pulse Rate 92 01/13/24 15:55 Respiratory Rate 16 01/13/24 15:55 Blood Pressure 136/73 01/13/24 15:55 Pulse Oximetry 95 01/13/24 19:46 Oxygen Delivery Me thod Room Air 01/13/24 15:55 MDM - Extremity (Nontraumatic) Medical Decision Making 54-year-old female with chronic progressive right hip pain which locked up yesterday and also resulted in a fall because of it locking up. I am going to do a CT scan of her pelvis so we can evaluate the pubic symphysis, SI joints, acetabulum, pubic rami, and the hip itself. Lab Data Radiology Impressions Pelvis CT 01/13/24 19:36 IMPRESSION: No acute findings. XR interpretation done by ED provider, pending radiology final review Discharge Plan Discharge Patient Disposition: Home Clinical Impression: Soft tissue injury of right hip Qualifiers: Encounter type: initial encounter Qualified Code(s): S79.911A - Unspecified injury of right hip, initial encounter Condition: Stable Prescriptions: New hydrocodone-acetaminophen 5-325 mg tablet 1 tab PO Q8H PRN (Reason: pain (scale score 7-10)) Qty: 20 0RF No Action duloxetine 40 mg capsule,delayed release(DR/EC) 40 mg PO DAILY ropinirole 1 mg tablet See Rx Instructions .ROUTE .COMPLEX Rx Instructions: TAKE ONE TABLET BY MOUTH IN THE MORNING and TAKE 2 TABLETS IN THE EVENING tizanidine 4 mg tablet 4 mg PO Q6H PRN (Reason: Spasms) Myrbetriq 25 mg Tablet Extended Release 24 Hr 25 mg PO DAILY meloxicam 15 mg tablet 15 mg PO QAM Multi-Vitamins Tablet 2 tab PO QAM ondansetron 4 mg tablet,disintegrating 4 mg PO Q8H PRN (Reason: nausea and vomiting) Qty: 14 0RF Discharge Orders: Discharge ED (Routine); Ordered 01/13/24 Ordered By: Adrian iSngh Referrals: Joelle Maldonado MD [Physician] - 7-10 days (Right hip pain ) Gallo Vogel DO [Primary Care Provider] - Discharge Activity: Increase activity as tolerated Patient Instructions: Hip Pain (ED), Opioid Safety, Pain Management Activity Restrictions/Additional Instructions: We did not find any bony injuries. There is no significant arthritis. No signs of avascular necrosis. Your injury yesterday would have been to the soft tissue. Soft tissue included structures such as tendons, ligaments, muscle and fascia. You have been prescribed some hydrocodone to use for severe breakthrough pain. You should use Tylenol, ibuprofen or meloxicam and tizanidine as your baseline medications for pain control. Follow-up with your doctor or orthopedic surgery, Dr. Maldonado for your hip pain. Coding Level of Care Code ED Travel Ticketing Reviewer for Uyen Chapman
[2024-01-13 19:46] VITALS: O2SAT 95
[2024-01-13] MEDS: HYDROmorphone 1 mg/mL INJ 1 mL IM (19:46)
[2024-01-13] MEDS: ketorolac 30 mg/mL INJ 15 MG IM (19:46)
[2024-01-13] MEDS: HYDROcodone-acetaminophen 10-325 mg Tablet 1 TAB PO (22:09)
[2024-01-13 22:31] VITALS: BP 165/85; PULSE 80; RESP 16; O2SAT 96
== END 2024-01-13 22:15 | disposition home or self-care (01) ==
PROVIDERS: Emergency Provider Emergency Medicine; PCP Internal Medicine
DX: S79.911A Unspecified injury of right hip, initial encounter (principal); E66.01 Morbid (severe) obesity due to excess calories; Z68.41 Body mass index [BMI] 40.0-44.9, adult; Z87.891 Personal history of nicotine dependence; W01.0XXA Fall on same level from slipping, tripping and stumbling without subsequent striking against object, initial encounter
CPT/HCPCS: 72192; 96372; 99284; J1170; J1885

== ENCOUNTER 2024-02-07 11:47 | Outpatient (CLI) | payer OTHER, SELFPAY ==
--- NOTE | 2024-02-07 12:00 | MM_ITS ---
WS: [id number] BILATERAL 3D TOMOSYNTHESIS DIGITAL SCREENING MAMMOGRAPHY WITH CAD CLINICAL INFORMATION: SCREENING HISTORY: Screening mammogram. No current complaints. COMPARISON: 2019 TECHNIQUE: Bilateral CC and MLO views. FINDINGS: Scattered fibroglandular densities bilaterally. No suspicious focal mass, asymmetry, calcifications, or architectural distortion. No evidence of malignancy. Stable lymph node upper outer RIGHT breast. A few incidental punctate calcifications. Vascular calcification. MM/MM scr BI tomosynthesis [id number] IMPRESSION: DENSITY: There are scattered areas of fibroglandular density. BI-RADS: 2 - Benign. FOLLOW UP: 1 Year Follow-up Recommend return to annual screening mammography.
== END 2024-02-07 11:48 | disposition home or self-care (01) ==
LOC: MOBLMAM 11:50
PROVIDERS: PCP Internal Medicine; Visit Provider Internal Medicine
DX: Z12.31 Encounter for screening mammogram for malignant neoplasm of breast (principal); R92.323 Mammographic fibroglandular density, bilateral breasts; R92.1 Mammographic calcification found on diagnostic imaging of breast
CPT/HCPCS: 77063; 77067

== ENCOUNTER 2024-03-11 10:47 | Emergency (ER) | payer OTHER, SELFPAY ==
[2024-03-11 11:23] VITALS: BP 198/105; PULSE 78; RESP 18; TEMP 36.7; O2SAT 99; BMI 41.6
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
--- NOTE | 2024-03-11 12:11 | CT_ITS ---
WS: [id number] CT HEAD TECHNIQUE: Noncontrast CT of the head obtained from the skullbase to the vertex. CLINICAL INFORMATION: trauma COMPARISON: 2019 DLP: 2369.[address] scans at [facility] use at least one of these dose optimization techniques: automated e xposure control; mA and/or kV adjustment per patient size (includes targeted exams where dose is matc hed to clinical indication); or iterative reconstruction. FINDINGS: No evidence of intracranial hemorrhage or mass effect. Ventricular system and basal cisterns are carvajal nt. No extra-axial fluid collections. No evidence of mass or mass effect. Normal brown-white differen tiation. Paranasal sinuses and mastoid air cells are well aerated. .Soft tissue edema overlying the orbits. CT/CT head wo con* [id number] IMPRESSION: 1. No evidence of intracranial hemorrhage or mass effect. 2. No acute intracranial findings.
--- NOTE | 2024-03-11 12:11 | CT_ITS ---
WS: [id number] CT FACIAL BONES TECHNIQUE: Noncontrast facial bones with coronal and sagittal reformatted images. CLINICAL INFORMATION: fall, R periorbital ecchymosis COMPARISON: None. DLP: 2369.[address] scans at [facility] use at least one of these dose optimization techniques: automated e xposure control; mA and/or kV adjustment per patient size (includes targeted exams where dose is matc hed to clinical indication); or iterative reconstruction. FINDINGS: Bilateral periorbital edema. Normal nasal bones. Normal pterygoid plates. Paranasal sinuses are well aerated. Mastoid air cells are well aerated. Normal posterior nasopharynx. No acute orbital fractures . Normal lamina papyracea. Inferior orbits are normal. Normal mandibular condyles. CT/CT facial bones wo con* [id number] IMPRESSION: Bilateral periorbital edema. No acute facial fractures.
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
--- NOTE | 2024-03-11 12:11 | CT_ITS ---
WS: [id number] CT CERVICAL TRAUMA TECHNIQUE: Noncontrast CT of the cervical spine with coronal and sagittal reformatted images. CLINICAL INFORMATION: trauma/fall COMPARISON: None. DLP: 2369.[address] scans at [facility] use at least one of these dose optimization techniques: automated e xposure control; mA and/or kV adjustment per patient size (includes targeted exams where dose is matc hed to clinical indication); or iterative reconstruction. FINDINGS: Straightening of the normal cervical lordosis. Mild spondylitic changes. Normal craniocervical juncti on. Normal C1-C2 articulation. Dens is normal in appearance. Normal occipital condyles. No high-grade spinal canal narrowing. Normal C1 ring. No evidence of acute fracture or dislocation. Normal prevertebral soft tissues. Mastoids air cells are well aerated. CT/CT cervical spin wo con* [id number] IMPRESSION: No evidence of acute fracture or dislocation.
[2024-03-11 12:13] VITALS: BP 195/91; PULSE 75; O2SAT 98
[2024-03-11 13:01] VITALS: BP 178/96; PULSE 78; O2SAT 98
[2024-03-11 13:41] VITALS: BP 180/93; PULSE 89; O2SAT 95
== END 2024-03-11 13:41 | disposition home or self-care (01) ==
PROVIDERS: Emergency Provider Physician Assistant; PCP Internal Medicine
DX: S05.11XA Contusion of eyeball and orbital tissues, right eye, initial encounter (principal); S80.01XA Contusion of right knee, initial encounter; S09.8XXA Other specified injuries of head, initial encounter; W19.XXXA Unspecified fall, initial encounter; Z87.891 Personal history of nicotine dependence
CPT/HCPCS: 70450; 70486; 72100; 72125; 73030; 73562; 99284

== ENCOUNTER 2024-07-22 10:26 | Outpatient (RCR) | payer OTHER, SELFPAY | END 2024-08-07 23:59 | disposition home or self-care (01) | LOC: SPT 10:26 | PROVIDERS: Visit Provider Physician Assistant | DX: Z98.890 Other specified postprocedural states (principal) | CPT/HCPCS: 97110; 97161 ==

== ENCOUNTER 2024-08-08 05:00 | Outpatient (RCR) | payer OTHER, SELFPAY | END 2024-09-07 23:55 | disposition home or self-care (01) | LOC: SPT 05:00 | PROVIDERS: Visit Provider Physician Assistant | DX: Z98.890 Other specified postprocedural states (principal) | CPT/HCPCS: 97110; 97140 ==

== ENCOUNTER 2024-09-08 06:30 | Outpatient (RCR) | payer OTHER, SELFPAY | END 2024-10-07 23:59 | disposition home or self-care (01) | LOC: SPT 06:30 | PROVIDERS: Visit Provider Physician Assistant | DX: Z98.890 Other specified postprocedural states (principal) | CPT/HCPCS: 97110; 97140; 97164 ==

== ENCOUNTER → 2024-12-16 16:08 | Outpatient (BNVA) | payer OTHER, SELFPAY | PROVIDERS: PCP Family Medicine; Visit Provider Family Medicine | DX: Z13.6 Encounter for screening for cardiovascular disorders (principal); R73.03 Prediabetes; D50.9 Iron deficiency anemia, unspecified; G25.81 Restless legs syndrome | CPT/HCPCS: 80053; 80061; 82728; 83036; 83550; 84443; 85025 ==

== ENCOUNTER → 2025-01-27 14:37 | Outpatient (BNVA) | payer OTHER, SELFPAY | PROVIDERS: PCP Family Medicine; Visit Provider Family Medicine | DX: Z13.6 Encounter for screening for cardiovascular disorders (principal); D50.9 Iron deficiency anemia, unspecified; G25.81 Restless legs syndrome | CPT/HCPCS: 80053; 80061; 82728; 83550; 84443 ==

== ENCOUNTER → 2025-02-11 18:19 | Outpatient (BNVA) | payer OTHER, SELFPAY | PROVIDERS: PCP Family Medicine | DX: R39.9 Unspecified symptoms and signs involving the genitourinary system (principal) | CPT/HCPCS: 81000; 87086 ==

== ENCOUNTER 2025-02-14 15:44 | Outpatient (CLI) | payer OTHER, SELFPAY ==
--- NOTE | 2025-02-14 15:45 | USCV_ITS ---
Veronica Buitrago Age: 55 Gender: F : 1970 Exam Date: 02/14/2025 16:02 Ordering Phys: Magda Salinas DO Technologist: SOHAIL Exam Location: [facility] Indication: stenosis Risk Factors: Previous Vascular Surgery: Right Brachial BP: / Left Brachial BP: / Right Left Velocity (cm/s) Spectral Plaque Velocity (cm/s) Spectral Plaque Syst/Diast Broadening Syst/Diast Broadening 111.80/25.10 Prox CCA 111.90/ 25.40 122.00/26.90 Mid CCA 109.60/ 26.90 111.40/32.70 Distal CCA 90.70 / 24.70 102.00/29.10 Prox ICA 73.90 / 22.20 83.20/ 32.10 Mid ICA 76.40 / 28.50 78.40/ 30.70 Distal ICA 92.30 / 35.10 138.90 ECA 74.60 0.90 ICA/CCA 1.00 Antegrade Vertebral Antegrade 87.30/ 20.30 cm/s 61.30/ 19.30 cm/s Tri Subclavian Tri 69.40 119.3 0 CONCLUSIONS Right ICA stenosis <50%. Left ICA stenosis <50%. Intimal thickening in the common carotid arteries and internal carotid arteries bilaterally. Normal antegrade Doppler flow noted in the right vertebral artery. Normal antegrade Doppler flow noted in the left vertebral artery. Edward Steel MD (Electronically Signed) Final Date: 14 February 2025 16:44 S
== END 2025-02-14 15:45 | disposition home or self-care (01) ==
LOC: RAD 15:45
PROVIDERS: PCP Family Medicine; Visit Provider Family Medicine
DX: I65.21 Occlusion and stenosis of right carotid artery (principal); I65.22 Occlusion and stenosis of left carotid artery; R09.89 Other specified symptoms and signs involving the circulatory and respiratory systems
CPT/HCPCS: 93880

== ENCOUNTER 2025-02-27 08:46 | Emergency (ER) | payer OTHER, SELFPAY ==
--- NOTE | 2025-02-27 08:53 | XR_ITS ---
WS: [id number] XR foot RT min 3V* [id number] REASON FOR EXAM: Pain FINDINGS: No acute fracture, focal bone lesion, periosteal reaction or bone erosion. Significant narrowing of the joint space with subchondral sclerosis in the DIP and the PIP joints of the second through the fifth toes. PIP joint of the third toe appears fused. Near complete loss of joint space in the DIP of the second toe. The remainder of the joint spaces in the forefoot are intact and well preserved. Mild narrowing with mild subchondral sclerosis and minimal osteophytosis in the talonavicular joint. The joint spaces of the forefoot are otherwise intact and relatively well preserved. Subtalar joint is intact and relatively well preserved. 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 No acute abnormality.
[2025-02-27 08:54] VITALS: BP 183/99; PULSE 79; RESP 16; TEMP 36.6; O2SAT 100
--- NOTE | 2025-02-27 09:10 | W.ED.EXTPRO ---
HPI - Extremity Problem General: Chief complaint: Extremity Injury, Lower Stated complaint: Rt foot inj Time Seen by Provider: 02/27/25 08:53 History of Present Illness: 55-year-old female presents emergency room complaining of right foot pain. Patient dropped a #10 can vegetables on her foot 3 days ago is been trying to walk on rest persistent pain some mild swelling she denies any other injury. No lacerations. Related Data Home Medications ?Medication ?Instructions ?Recorded ?Confirmed ropinirole 1 mg tablet See Rx Instructions .Route .COMPLEX 02/20/23 02/12/25 GLP - 1 patch daily as directed 12/16/24 02/12/25 apple cider vinegar 500 mg tablet mg PO 12/16/24 02/12/25 multivitamin 1 tab PO DAILY 12/16/24 02/12/25 Previous Rx's ?Medication ?Instructions ?Recorded meloxicam 15 mg tablet 15 mg PO DAILY #90 tabs 12/16/24 tizanidine 4 mg tablet 4 mg PO .q hs PRN Spasms #90 tabs 12/16/24 pen needles #100 ea 12/18/24 liraglutide 0.6 mg/0.1 mL (18 mg/3 1.2 mg (0.2 mL) SUBCUT DAILY #6 mL 02/03/25 mL) subcutaneous pen injector (Victoza 2-Leroy) sulfamethoxazole 800 1 tab PO BID 5 days #10 tabs 02/11/25 mg-trimethoprim 160 mg tablet (Bactrim DS) atorvastatin 40 mg tablet (Lipitor) 40 mg PO DAILY #90 tabs 02/18/25 Allergies Allergy/AdvReac Type Severity Reaction Status Date / Time No Known Drug Allergies Allergy Unknown Verified 02/03/25 11:33 Review of Systems Musc: Reports: extremity pain PFS ED PFSH: Medical History ANA (obstructive sleep apnea) Anemia Incontinence of feces with fecal urgency Mixed incontinence Surgical History History of total knee replacement right History of cholecystectomy History of appendectomy History of tubal ligation History of hysterectomy Total - benign - 2017 History of foot operation Family History Grandfather Cancer Stroke Father Cancer Chronic kidney disease (CKD) Lung disease Grandmother Diabetes Mother Diabetes Hypertension Social History Smoking and tobacco/nicotine status: former use of tobacco/nicotine Alcohol intake: never Substance/Drug Use: never Physical Exam Extremity: OTHER: Mild swelling of the right 2nd and 3rd toes no deformity some duskiness appearance of early ecchymosis capillary refill good Course Vital Signs: Vital signs: Vital Signs Temperature 97.9 F 02/27/25 08:54 Pulse Rate 78 02/27/25 09:22 Respiratory Rate 16 02/27/25 08:54 Blood Pressure 183/99 02/27/25 09:22 Pulse Oximetry 98 02/27/25 09:22 MDM - Extremity (Nontraumatic) Medical Decision Making Right third toe mid phalanx fracture nondisplaced. 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 No acute abnormality. XR interpretation done by ED provider, pending radiology final review ED provider radiology interpretation(s): Right third toe mid phalanx fracture nondisplaced Discharge Plan Discharge Patient Disposition: Home Clinical Impression: Fracture of toe of right foot Qualifiers: Encounter type: initial encounter Toe: unspecified toe Fracture type: closed Fracture alignment: nondisplaced Qualified Code(s): S92.911A - Unspecified fracture of right toe(s), initial encounter for closed fracture Condition: Stable Prescriptions: No Action multivitamin Tablet 1 tab PO DAILY apple cider vinegar 500 mg tablet PO GLP - 1 patch daily as directed meloxicam 15 mg tablet 15 mg PO DAILY Qty: 90 0RF tizanidine 4 mg tablet 4 mg PO .q hs PRN (Reason: Spasms) Qty: 90 0RF liraglutide [Victoza 2-Leroy] 0.6 mg/0.1 mL (18 mg/3 mL) pen injector 1.2 mg SUBCUT DAILY Qty: 6 0RF sulfamethoxazole-trimethoprim [Bactrim DS] 800-160 mg tablet 1 tab PO BID 5 Days Qty: 10 0RF (DME) pen needles See Rx Instructions .Route .MEDSUPPLY Qty: 100 5RF Rx Instructions: As directed atorvastatin [Lipitor] 40 mg tablet 40 mg PO DAILY Qty: 90 0RF ropinirole 1 mg tablet See Rx Instructions .ROUTE .COMPLEX Rx Instructions: TAKE ONE TABLET BY MOUTH IN THE MORNING and TAKE 2 TABLETS IN THE EVENING Discharge Orders: Discharge ED (Routine); Ordered 02/27/25 Ordered By: Alvarado Downey Referrals: Magda Salinas DO [Primary Care Provider, Family Practice] Discharge Diet: Usual diet Discharge Activity: Limit activity as instructed Patient Instructions: Opioid Safety, Pain Management, Patient Portal & Carrie Instructions Activity Restrictions/Additional Instructions: [facility]. It is very important that you follow up as instructed or that you return to the Emergency Department should you have concerns or if your condition changes or worsens in any way. Emergency department visits are focused on emergent conditions, in some cases you may require further evaluation on an outpatient basis. You were seen in the emergency room with complaints of toe pain after dropping an item on your toe. Your fracture of the midportion of the right third toe. It is not significantly displaced. Recommend immobilizing crutches and follow-up with podiatry. (Please note that included in your discharge packet is information concerning opioid safety and pain management. This information is given to all patients were discharged from the ER regardless of their discharge diagnosis or the medicines they usually take or are prescribed.) Print Language: Cypriot Coding Level of Care Code ED Laborer Driver for Uyen Chapman
[2025-02-27 09:22] VITALS: BP 183/99; PULSE 78; O2SAT 98
--- OUTSIDE RECORDS SUMMARY | 2025-02-27 09:31 | XMS_ITS | Encounter Summary ---
Author Organization [employer] [facility] Address [address] [place] [address] Care Team Providers Care Remote Sensing Technologist Name Role Phone Unavailable Primary Care Provider Unavailabl e Encounter Details Date Type Department Care Team (Latest Contact Info) Description 09/23/2002 Outpatient Historical HIS [facility] Olivier Lyles MD [address] [place] [address] HYPERLIPIDEMIA NEC/NOS (Primary Dx); Other Counseling Social History Tobacco Use Types Packs/Day Years Used Date Smoking Tobacco: Never Assessed Comments Unknown Sex and Gender Information Value Date Recorded Sex Assigned at Not on file Legal Sex Female 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
--- OUTSIDE RECORDS SUMMARY | 2025-02-27 09:31 | XMS_ITS | Encounter Summary ---
Author Organization [facility] Address [address] [place] [address] Care Team Providers Care Salesperson Burial Needs Name Role Phone Unavailable Primary Care Provider Unavailabl e Encounter Details Date Type Department Care Team (Latest Contact Info) Description 03/09/2006 Outpatient Historical [facility] Orthopedics- 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
--- OUTSIDE RECORDS SUMMARY | 2025-02-27 09:31 | XMS_ITS | Encounter Summary ---
Author Organization [facility] Address [address] [place] [address] Care Team Providers Care Hydroblaster Name Role Phone Unavailable Primary Care Provider Unavailabl e Encounter Details Date Type Department Care Team (Latest Contact Info) Description 08/16/2002 Outpatient Historical HIS [facility] Olivier Lyles MD [address] [place] [address] UNS ASTHMA WOSTATUS ASTHMATICUS (Primary Dx) Social History Tobacco Use Types Packs/Day Years Used Date Smoking Tobacco: Never Assessed Comments Unknown Sex and Gender Information Value Date Recorded Sex Assigned at Not on file Legal Sex Female 2:58 AM DINING SERVICES MANAGER Gender Identity Not on file Sexual Orientation Not on file documented as of this encounter Plan of Treatment Not on file documented as of this encounter Visit Diagnoses Diagnosis Unspecified asthma(493.90)- Primary Unspecified asthma documented in this encounter
--- OUTSIDE RECORDS SUMMARY | 2025-02-27 09:31 | XMS_ITS | Encounter Summary ---
Author Organization [employer] [facility] Address [address] [place] [address] Care Team Providers Care Paper Tester Name Role Phone Unavailable Primary Care Provider Unavailabl e Encounter Details Date Type Department Care Team (Latest Contact Info) Description 07/09/2002 Outpatient Historical HIS [facility] Olivier Lyles MD [address] [place] [address] RESPIRATORY ABNORM NEC (Primary Dx); CONTRACEPT SURVEILL NEC Social History Tobacco Use Types Packs/Day Years Used Date Smoking Tobacco: Never Assessed Comments Unknown Sex and Gender Information Value Date Recorded Sex Assigned at Not on file Legal Sex Female 2:58 AM ACADEMIC ADVISER Gender Identity Not on file Sexual Orientation Not on file documented as of this encounter Plan of Treatment Not on file documented as of this encounter Visit Diagnoses Diagnosis Other dyspnea and respiratory abnormality- Primary Surveillance of other previously prescribed contraceptive method documented in this encounter
--- OUTSIDE RECORDS SUMMARY | 2025-02-27 09:31 | XMS_ITS | Encounter Summary ---
Author Organization [facility] [employer] 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
--- OUTSIDE RECORDS SUMMARY | 2025-02-27 09:31 | XMS_ITS | Encounter Summary ---
Author Organization [facility] Address [address] [place] [address] Care Team Providers Care Candle Cutter Name Role Phone Unavailable Primary Care Provider Unavailabl e Encounter Details Date Type Department Care Team (Latest Contact Info) Description 06/24/2002 Outpatient Historical HIS [facility] Olivier Lyles MD [address] [place] [address] RESPIRATORY ABNORM NEC (Primary Dx); URIN TRACT INFECTION NOS; ESOPHAGEAL REFLUX Social History Tobacco Use Types Packs/Day Years Used Date Smoking Tobacco: Never Assessed Comments Unknown Sex and Gender Information Value Date Recorded Sex Assigned at Not on file Legal Sex Female 2:58 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
--- OUTSIDE RECORDS SUMMARY | 2025-02-27 09:31 | XMS_ITS | Encounter Summary ---
Author Organization [facility] [facility] Address [address] [place] [address] Care Team Providers Care Security Operations Specialist Name Role Phone Unavailable Primary Care Provider Unavailabl e Encounter Details Date Type Department Care Team (Latest Contact Info) Description 01/27/2003 Outpatient Historical HIS [facility] Olivier Lyles MD [address] [place] [address] ALLERGIC RHINITIS NOS (Primary Dx); COUGH Social History Tobacco Use Types Packs/Day Years Used Date Smoking Tobacco: Never Assessed Comments Unknown Sex and Gender Information Value Date Recorded Sex Assigned at Not on file Legal Sex Female 2:58 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
--- OUTSIDE RECORDS SUMMARY | 2025-02-27 09:31 | XMS_ITS | Encounter Summary ---
Author Organization [employer] [facility] Address [address] [place] [address] Care Team Providers Care Machine Plate Stacker Name Role Phone Unavailable Primary Care Provider Unavailabl e Encounter Details Date Type Department Care Team (Latest Contact Info) Description 01/21/2003 Outpatient Historical HIS [facility] Olivier Lyles MD [address] [place] [address] ACUTE PHARYNGITIS (Primary Dx); SPRAIN OF ANKLE NOS Social History Tobacco Use Types Packs/Day Years Used Date Smoking Tobacco: Never Assessed Comments Unknown Sex and Gender Information Value Date Recorded Sex Assigned at Not on file Legal Sex Female 2:58 AM STEREOPTICIAN Gender Identity Not on file Sexual Orientation Not on file documented as of this encounter Plan of Treatment Not on file documented as of this encounter Visit Diagnoses Diagnosis Acute pharyngitis- Primary Sprain of ankle, unspecified site documented in this encounter
--- OUTSIDE RECORDS SUMMARY | 2025-02-27 09:31 | XMS_ITS | Encounter Summary ---
Author Organization [facility] Address [address] [place] [address] Care Team Providers Care Tile Helper Name Role Phone Unavailable Primary Care Provider Unavailabl e Encounter Details Date Type Department Care Team (Latest Contact Info) Description 09/21/2006 Outpatient Historical [facility] Orthopedics- [address] [address] [place] [phone] Bradley Juarez MD [address] [place] [phone] Tibialis Tendinitis (Primary Dx) Social History Tobacco Use Types Packs/Day Years Used Date Smoking Tobacco: Never Assessed Comments Unknown Sex and Gender Information Value Date Recorded Sex Assigned at Not on file Legal Sex Female 2:58 AM TAPING MACHINE OPERATOR Gender Identity Not on file Sexual Orientation Not on file documented as of this encounter Plan of Treatment Not on file documented as of this encounter Visit Diagnoses Diagnosis Tibialis tendinitis- Primary documented in this encounter
--- OUTSIDE RECORDS SUMMARY | 2025-02-27 09:31 | XMS_ITS | Encounter Summary ---
Author Organization [facility] Address [address] [place] [address] Care Team Providers Care Port Surveyor Name Role Phone Unavailable Primary Care Provider Unavailabl e Encounter Details Date Type Department Care Team (Latest Contact Info) Description 02/09/2006 Outpatient Historical [facility] Orthopedics- [address] [place] 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
--- OUTSIDE RECORDS SUMMARY | 2025-02-27 09:31 | XMS_ITS | Encounter Summary ---
Author Organization [facility] Address [address] [place] [address] Care Team Providers Care Tail Ripper Name Role Phone Unavailable Primary Care Provider Unavailabl e Encounter Details Date Type Department Care Team (Latest Contact Info) Description 09/17/2002 Outpatient Historical HIS [facility] Olivier Lyles MD [address] [place] [address] Gynecologic examination (Primary Dx); SCREENING-ENDOC/NUT/ MET/IMMUN OTHER; SCREENING-LIPOID DISORDERS Social History Tobacco Use Types Packs/Day Years Used Date Smoking Tobacco: Never Assessed Comments Unknown Sex and Gender Information Value Date Recorded Sex Assigned at Not on file Legal Sex Female 2:58 AM HEEL SANDER RUBBER Gender Identity Not on file Sexual Orientation Not on file documented as of this encounter Plan of Treatment Not on file documented as of this encounter Visit Diagnoses Diagnosis Gynecologic examination- Primary Gynecological examination Screening for other and unspecified endocrine, nutritional, metabolic, and immunity disorders Screening for lipoid disorders documented in this encounter
--- OUTSIDE RECORDS SUMMARY | 2025-02-27 09:31 | XMS_ITS | Encounter Summary ---
Author Organization [facility] Address [address] [place] [address] Care Team Providers Care Tufting Machine Operator Single Needle Name Role Phone Unavailable Primary Care Provider Unavailabl e Encounter Details Date Type Department Care Team (Latest Contact Info) Description 07/20/2006 Outpatient Historical [facility] Orthopedics[address] [place] [phone] Bradley Juarez MD [address] [place] [phone] Laxity of Ligament (Primary Dx); Tibialis Tendinitis; Pain in Joint, Ankle and Foot Social History Tobacco Use Types Packs/Day Years Used Date Smoking Tobacco: Never Assessed Comments Unknown Sex and Gender Information Value Date Recorded Sex Assigned at Not on file Legal Sex Female 2:58 AM ASL INTERPRETER Gender Identity Not on file Sexual Orientation Not on file documented as of this encounter Plan of Treatment Not on file documented as of this encounter Visit Diagnoses Diagnosis Laxity of ligament- Primary Tibialis tendinitis Pain in joint, ankle and foot documented in this encounter
--- OUTSIDE RECORDS SUMMARY | 2025-02-27 09:31 | XMS_ITS | Encounter Summary ---
Author Organization [facility] Address [address] [place] [address] Care Team Providers Care Computer Programming Supervisor Name Role Phone Unavailable Primary Care Provider Unavailabl e Encounter Details Date Type Department Care Team (Latest Contact Info) Description 02/17/2006 Outpatient Historical [facility] Orthopedics- 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
--- OUTSIDE RECORDS SUMMARY | 2025-02-27 09:31 | XMS_ITS | Encounter Summary ---
Author Organization [employer] [facility] Address [address] [place] [address] Care Team Providers Care Animal Anatomist Name Role Phone Unavailable Primary Care Provider Unavailabl e Encounter Details Date Type Department Care Team (Late st Contact Info) Description 09/17/2002 Outpatient Historical HIS [facility] Olivier Lyles MD [address] [place] [address] Social History Tobacco Use Types Packs/Day Years Used Date Smoking Tobacco: Never Assessed Comments Unknown Sex and Gender Information Value Date Recorded Sex Assigned at Not on file Legal Sex Female 2:58 AM TUBE WORKER Gender Identity Not on file Sexual Orientation Not on file documented as of this encounter Plan of Treatment Not on file documented as of this encounter Visit Diagnoses Not on filedocumented in this encounter
--- OUTSIDE RECORDS SUMMARY | 2025-02-27 09:31 | XMS_ITS | Encounter Summary ---
Author Organization [facility] Address [address] [place] [address] Care Team Providers Care Information Technology Assistant Name Role Phone Unavailable Primary Care Provider Unavailabl e Encounter Details Date Type Department Care Team (Latest Contact Info) Description 10/08/2002 Outpatient Historical HIS [facility] Olivier Lyles MD [address] [place] [address] SCABIES (Primary Dx) Social History Tobacco Use Types Packs/Day Years Used Date Smoking Tobacco: Never Assessed Comments Unknown Sex and Gender Information Value Date Recorded Sex Assigned at Not on file Legal Sex Female 2:58 AM CONTRACT ADMINISTRATOR Gender Identity Not on file Sexual Orientation Not on file documented as of this encounter Plan of Treatment Not on file documented as of this encounter Visit Diagnoses Diagnosis Scabies- Primary documented in this encounter
--- OUTSIDE RECORDS SUMMARY | 2025-02-27 09:32 | XMS_ITS | Encounter Summary ---
Author Organization [facility] Address [address] [place] [address] Care Team Providers Care Superintendent Greens Name Role Phone Unavailable Primary Care Provider Unavailabl e Encounter Details Date Type Department Care Team (Latest Contact Info) Description 08/11/2005 Outpatient Historical [facility] Orthopedics- [address] [place] [address] [place] [address] Bradley Juarez MD [address] [place] [phone] Pain in Joint, Ankle and Foot (Primary Dx); Congenital Anomalies of Foot, not Elsewhere Classified; Tibialis Tendinitis Social History Tobacco Use Types Packs/Day Years Used Date Smoking Tobacco: Never Assessed Comments Unknown Sex and Gender Information Value Date Recorded Sex Assigned at Not on file Legal Sex Female 2:58 AM CROSS CUT SAWYER Gender Identity Not on file Sexual Orientation Not on file documented as of this encounter Plan of Treatment Not on file documented as of this encounter Visit Diagnoses Diagnosis Pain in joint, ankle and foot- Primary Congenital anomalies of foot, not elsewhere classified Tibialis tendinitis documented in this encounter
--- OUTSIDE RECORDS SUMMARY | 2025-02-27 09:32 | XMS_ITS | Encounter Summary ---
Author Organization [facility] Address [address] [place] [address] Care Team Providers Care Talent Acquisition Director Name Role Phone Unavailable Primary Care Provider Unavailabl e Encounter Details Date Type Department Care Team (Latest Contact Info) Description 09/22/2005 Outpatient Historical [facility] Orthopedics- [address] [place] [address] [place] [phone] Bradley Juarez MD [address] [place] [phone] Pain in Joint, Ankle and Foot (Primary Dx) Social History Tobacco Use Types Packs/Day Years Used Date Smoking Tobacco: Never Assessed Comments Unknown Sex and Gender Information Value Date Recorded Sex Assigned at Not on file Legal Sex Female 2:58 AM DATABASE ADMINISTRATION ASSOCIATE Gender Identity Not on file Sexual Orientation Not on file documented as of this encounter Plan of Treatment Not on file documented as of this encounter Visit Diagnoses Diagnosis Pain in joint, ankle and foot- Primary documented in this encounter
--- OUTSIDE RECORDS SUMMARY | 2025-02-27 09:32 | XMS_ITS | Data Portability ---
Author Organization ARIE Benavides [facility], Danny, [facility] Address [address] [address] Care Team Providers Care Maxillofacial Pathology Name Role Phone GALLO VOGEL Primary Care Provider Unavailabl e Assessment No assessment recorded. Plan of Treatment Reminders Order Date Submit Date Provider Last Modified By Organization Details Last Modified Time Details Appointments None recorded. Lab HbA1c (hemoglobin A1c), blood 2023 024 [facility] ([facility]), [address] [place] [address], [address], 4 09:48:41 HbA1c (hemoglobin A1c), blood 2023 024 [facility] ([facility]), [address] [place] [address], [address], 4 17:05:16 TSH, serum or plasma 2023 024 [facility] ([facility]), [address] [place] [address], [address], 4 17:35:27 T4, free, serum 2023 024 [facility], [address] [facility] [address] [facility] [place], [address], 4 07:14:30 T3, total, serum 2023 024 [facility], [address] [facility] [address], [place], [address], 4 07:14:29 iron + total iron-bindin g capacity (TIBC), serum 2023 024 [facility], [address] [facility] [address], [place], [address], 4 07:14:28 CBC 2023 [facility], [facility] Lab, [address] [facility], [facility], [place], [address], 4 16:20:39 CMP, serum or plasma 2023 024 [facility], [facility] Lab, [address] [address], [place], [address], 4 17:26:39 Referral otolaryngol ogist referral 2023 024 [email or web address] Not available 13:02:25 orthopedic surgeon referral 2023 024 [email or web address] [facility], [address] [place], [address], 4 13:10:45 vice president global advertising sales referral 2023 024 [facility], [address] [place] [address], [address], 4 14:06:21 Procedures None recorded. Surgeries None recorded. Imaging XR, foot, 3 or more view 2023 024 [facility] ([facility]), [address] [place], [address], 4 08:27:56 Medication Orders ropinirole 1 mg tablet [address], [address], 5 14:13:51 duloxetine 20 mg capsule,del ayed release sprinkle [address], [address], 4 12:13:47 amoxicillin 875 mg-potassiu m clavulanate 125 mg tablet [address], [address], 4 12:13:43 citalopram 20 mg tablet [address], [address], 4 12:13:50 duloxetine 40 mg capsule,del ayed release [address], [address], 4 12:42:21 meloxicam 15 mg tablet [address], [address], 4 10:46:35 ropinirole 1 mg tablet [address], [address], 4 15:48:11 tizanidine 4 mg tablet 2023 024 [email or web address] [facility], [address] [place], [address], 09:20:04 duloxetine 30 mg capsule,del ayed release 2023 024 [facility] [place], [address] [place], [address], 12:42:20 Patient TargetsNo targets recorded. Patient Instructions Encounter Date Encounter Id Patient Instructions Last Modified By Organization Details Last Modified Time 06/26/2023 [id number] started on duloxetine for bladder, but helping with mood; getting out of house more he passed in August and next couple months will be hard [email or web address] Not available 06/26/2023 14:03:48 09/11/2023 [id number] struggling emotionally lost interest in leaving home; hides in bedroom carpal tunnel went well, but now with trigger thumb continued pain in foot; xray normal; severe in top of foot; will request help [email or web address] Not available 09/11/2023 15:34:47 11/06/2023 [id number] not doing well emotionally; cymbalta hasn't helped; increased dose 2 weeks ago started process in crisis center to get counsellor going on cruise in weeks with sister; hoping that will help will add another antidepressant [email or web address] Not available 11/06/2023 12:53:37 12/13/2023 [id number] cruise was wonderful had a big emotional moment and had a change; feels better wants to wean cymbalta lab today [email or web address] Not available 12/13/2023 09:18:34 Reason for Referral Orthopedic Surgeon Referral for Trigger thumb of right hand Referring Physician: Gallo Vogel, Internal Medicine, Encounter Date: 09/11/2023 Brake Drum Molder Referral for Pain in left foot Referring Physician: Gallo Vogel, Internal Medicine, Encounter Date: 09/11/2023 Banking Supervisor Referral fo r Peritonsillar abscess Referring Physician: Gallo Vogel, Internal Medicine, Encounter Date: 12/13/2023 Results Created Date Observation Date Name Description Value Unit Range Abnormal Flag Note LastModifiedBy Organization Detail LastModifiedTime 09/11/19 24 09/11/2023 CBC WBC 8.6 x10 4.0-10 .5 Not Available [facility] [address], [place], [address], 09/11/2023 16:20:38 09/11/19 24 09/11/2023 CBC RBC 4.35 x10 3.50-5 .50 Not Available [facility] [address], [place], [address], 09/11/2023 16:20:38 09/11/19 24 09/11/2023 CBC HGB 13.2 g/dL 12.0-1 6.0 Not Available [facility] [address], [place], [address], 09/11/2023 16:20:38 09/11/19 24 09/11/2023 CBC HCT 38.8 % 37.0-4 7.0 Not Available [facility] [address], [place], [address], 09/11/2023 16:20:38 09/11/19 24 09/11/2023 CBC MCV 89.2 fL 80.0-9 9.9 Not Available [facility] [address], [place], [address], 09/11/2023 16:20:38 09/11/19 24 09/11/2023 CBC MCH 30.3 pg 27.0-3 2.0 Not Available [facility] [address], [place], [address], 09/11/2023 16:20:38 09/11/19 24 09/11/2023 CBC MCHC 34.0 g/dL 32.0-3 6.0 Not Available [facility] [address], [place], [address], 09/11/2023 16:20:38 09/11/19 24 09/11/2023 CBC RDW 13.6 % 11.5-1 4.5 Not Available [facility] [address] [place] Ashly [facility] 1, [place], [address], 09/11/2023 16:20:38 09/11/19 24 09/11/2023 CBC plt 377.7 x10 140.0- 451.0 Not Available [facility] [address] [place] [facility], [place], [address], 09/11/2023 16:20:38 09/11/19 24 09/11/2023 CBC lymphocytes % 27.8 % 20.0-5 0.0 Not Available [facility] [address] [address], [place], [address], 09/11/2023 16:20:38 09/11/19 24 09/11/2023 CBC granulcytes % 61.1 % 30.0-7 0.0 Not Available [facility] [address] [address], [place], [address], 09/11/2023 16:20:38 09/11/19 24 09/11/2023 CBC monocytes % 7.3 % 2.0-10 .0 Not Available [facility] [address] [address], [place], [address], 09/11/2023 16:20:38 09/11/19 24 09/11/2023 CBC granulcytes# 5.3 x10 Not Gris ilable [facility] [address] [facility] [address] [address], [place], [address], 09/11/2023 16:20:38 09/11/19 24 09/11/2023 CBC lymphocytes # 2.4 x10 Not Available [facility] [facility] 1, [place], [address], 09/11/2023 16:20:38 09/11/19 24 09/11/2023 CBC monocytes # 0.6 x10 Not Avai lable [facility] [address] [facility], [place], [address], 09/11/2023 16:20:38 09/11/19 24 09/11/2023 CMP (FEMA LE) glucose 117.0 mg/dL 60.0-9 9.0 high Not Available [facility] [address] [facility], [place], [address], 09/11/2023 17:26:39 09/11/19 24 09/11/2023 CMP (FEMA LE) BUN (blood urea nitrogen) 9.0 mg/dL 10.0-2 6.0 low Not Available [facility] [address] [facility], [place], [address], 09/11/2023 17:26:39 09/11/19 24 09/11/2023 CMP (FEMA LE) creatinine (serum) 0.6 mg/dL 0.4-1. 5 Not Available [facility] [address] [place] [facility], [place], [address], 09/11/2023 17:26:39 09/11/19 24 09/11/2023 CMP (FEMA LE) BUN/creatini ne ratio 14.06 ratio Not Available [facility] [address] [facility], [place], [address], 09/11/2023 17:26:39 09/11/19 24 09/11/2023 CMP (FEMA LE) eGFR calculated 103.2 Not Available [facility] [address] [facility] Ashly [facility] 1, [place], [address], 09/11/2023 17:26:39 09/11/19 24 09/11/2023 CMP (FEMA LE) total protein 7.9 g/dL 6.0-8. 5 Not Available [facility] [address] [facility], [place], [address], 09/11/2023 17:26:39 09/11/19 24 09/11/2023 CMP (FEMA LE) total bilirubin 0.5 mg/dL 0.2-1. 3 Not Available [facility] [address] [facility], [place], [address], 09/11/2023 17:26:39 09/11/19 24 09/11/2023 CMP (FEMA LE) albumin 4.1 g/dL 3.5-5. 5 Not Available [facility] [address] [facility] [address], [place], [address], 09/11/2023 17:26:39 09/11/19 24 09/11/2023 CMP (FEMA LE) globulin 3.8 calc Not Available [facility] [address] [facility] [address], [place], [address], 09/11/2023 17:26:39 09/11/19 24 09/11/2023 CMP (FEMA LE) AST (SGOT) 25.0 U/L 0.0-46 .0 Not Available [facility] [address] [facility] [address], [place], [address], 09/11/2023 17:26:39 09/11/19 24 09/11/2023 CMP (FEMA LE) altv (SGPT) 19.0 U/L 13.0-6 9.0 normal Not Available [facility] [address] [facility] [address], [place], [address], 09/11/2023 17:26:39 09/11/19 24 09/11/2023 CMP (FEMA LE) A/G ratio 1.1 ratio Not Available [facility] [address] [facility] [address], [place], [address], 09/11/2023 17:26:39 09/11/19 24 09/11/2023 CMP (FEMA LE) ALP phos 148.0 U/L 30.0-1 40.0 abnormal Not Available [facility] [address] [facility] [address], [place], [address], 09/11/2023 17:26:39 09/11/19 24 09/11/2023 CMP (FEMA LE) calcium 9.4 mg/dL 8.4-10 .5 Not Available [facility] [address] [facility] [address], [place], [address], 09/11/2023 17:26:39 09/11/19 24 09/11/2023 CMP (FEMA LE) sodium 138.0 mmol/ L 136.0- 145.0 Not Available [facility] [address] [address], [place], [address], 09/11/2023 17:26:39 09/11/19 24 09/11/2023 CMP (FEMA LE) potassium 4.1 mmol/ L 3.5-5. 1 Not Available [facility] [address] [address], [place], [address], 09/11/2023 17:26:39 09/11/19 24 09/11/2023 CMP (FEMA LE) chloride 105.0 mmol/ L 98.0-1 10.0 normal Not Available [facility] [address] [facility], [place], [address], 09/11/2023 17:26:39 09/11/19 24 09/11/2023 CMP (FEMA LE) C02 27.0 mmol/ L 22.0-3 1.0 Not Available [facility] [address] [facility] [address], [place], [address], 09/11/2023 17:26:39 09/11/19 24 09/11/2023 CMP (FEMA LE) anion gap 6.0 calc Not Available [facility] [address] [facility] [address], [place], [address], 09/11/2023 17:26:39 09/11/19 24 09/11/2023 CMP (FEMA LE) osmolality 284.9 calc Not Available [facility] [address] [facility] [address], [place], [address], 09/11/2023 17:26:39 09/11/19 24 09/12/2023 IRON AND TOTAL IRON GINA NG CAPAC ITY iron, total 56 mcg/d L 45-160 normal Not Available [address] [address] [place], [address], 09/12/2023 07:14:28 09/11/19 24 09/12/2023 IRON AND TOTAL IRON GINA NG CAPAC ITY iron binding capacity 296 mcg/d L_(ca lc) 250-45 0 normal Not Available [address] [address] [place], [address], 09/12/2023 07:14:28 09/11/19 24 09/12/2023 IRON AND TOTAL IRON GINA NG CAPAC ITY % saturation 19 %_(ca lc) 16-45 normal Not Available [facility] [address] [address] [place], [address], 09/12/2023 07:14:28 09/11/19 24 09/12/2023 T3, TOTAL T3, total 122 NG/dL 76-181 normal Not Available [address] [address] [place], [address], 09/12/2023 07:14:29 09/11/19 24 09/12/2023 T4, FREE T4, free 0.8 NG/dL 0.8-1. 8 normal Not Available [facility] [address] [place], [address], 09/12/2023 07:14:30 09/11/19 24 09/11/2023 TSH, serum or plasm a TSH 3.02 uIU/m L 0.49-3 .82 Not Available [facility]) [address] [place] [address], [address], 09/11/2023 15:36:03 09/11/19 24 09/11/2023 HbA1c (hemo globi n A1c), blood HbA1c 6.3 Not Available [facility] ([facility]) [address] [place] [address], [address], 09/11/2023 15:36:33 12/13/19 24 12/13/2023 HbA1c (hemo globi n A1c), blood HbA1c 6.0 Not Available [facility] ([facility]) [address] [place] [address], [address], 12/13/2023 09:17:10 06/27/19 24 06/26/2023 XR, foot, 3 or more view No observ ation record ed. ALDEN [facility] [address] [place], [address], 06/29/2023 18:47:45 02/10/20 24 02/07/2024 MAMMO , scree saul, digit al, bilat eral No observ ation record ed. [email or web address] [facility] [address] [place], [address], 02/12/2024 09:42:39 Result Notes None recorded. Problems Name Problem SNOMED Code Status Onset Date Resolution Date Notes Provider Name and Address Organization Details Recorded Time History of tubal ligation 462419956 Active 2003 Tubal ligation ; 11/28/19 04 10:14AM by Sam Chiang MD, Office Visit; Promoted ; acuity set as *; Not Available [facility] 3 03:13:34 Appendectom y Active 2003 Appy; 11/28/19 04 10:14AM by Sam Chiang MD, Office Visit; Promoted ; acuity set as *; Not Available [facility] 3 03:13:34 Asthma 440866990 Active 2003 Asthma; 11/28/19 04 10:15AM by Sam Chiang MD, Office Visit; Promoted ; acuity set as *; Not Available [facility] 3 03:13:36 Depressive disorder 53299454 Active 2022 Gallo Vogel, [address] [address] , [facility] 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 3 11:12:14 Hyperglycem ia 20479163 Active 2022 Gallo Vogel, [address] [address] , [facility] 3 10:30:28 Problem Notes None recorded. Medical Equipment None Reported. Allergies No known drug allergies Medications Name Sig Start Date Stop Date Status Note LastModified by Organization Details LastModified Time ropinirol e 1 mg tablet TAKE 2 TABLETS BY MOUTH EVERY MORNING and TWO EVERY EVENING 2024 active Not Available Not Available Not Avai lable tizanidin e 4 mg tablet TAKE 1 TABLET BY MOUTH THREE TIMES DAILY NEEDED 2023 active Not Available Not Available Not Avai lable meloxicam 15 mg tablet TAKE 1 TABLET BY MOUTH EVERY DAY *need TO see doctor* 2024 active Not Available Not Available Not Avai lable ciproflox acin 500 mg tablet TAKE 1 TABLET BY MOUTH EVERY TWELVE HOURS 06/25 completed Not Available Not Available Not Available citalopra m 20 mg tablet TAKE 1 TABLET BY MOUTH EVERY DAY 03/11 completed Not Available Not Available Not Available estradiol 0.01% (0.1 mg/gram) vaginal cream USE ONE fingerti p's worth (0.5gm) of estrogen placed vaginall y twice weekly at bedtime active Not Available Not Available No t Available ondansetr on 4 mg disintegr ating tablet Place 2 tablets twice a day by translin gual route as needed for 10 days. 06/25 completed Not Available Not Available Not Available sertralin e 50 mg tablet TAKE 1 TABLET BY MOUTH EVERY DAY AT BEDTIME 06/25 completed Not Available Not Available Not Available amoxicill in 875 mg-potass ium clavulana te 125 mg tablet TAKE 1 TABLET BY MOUTH EVERY TWELVE HOURS 03/11 completed Not Available Not Available Not Available duloxetin e 30 mg capsule,d elayed release take 1 capsule BY MOUTH EVERY DAY 11/05 completed Not Available Not Available Not Available duloxetin e 60 mg capsule,d elayed release take 1 capsule BY MOUTH EVERY DAY 12/12 completed Not Available Not Available Not Available Benadryl active Not Available Not Avai lable Not Available Vitamin D3 daily 09/10 completed 53683; Recorded 08/31/19 22 2:04PM by Wilma Gamble RN (Authori kian through Gallo Vogel DO), Annotati on/Adden dum; Refill Quantity : 90; Tablet; Not Available Not Available Not Available oxycodone 10 mg tablet TAKE 1 TABLET BY MOUTH EVERY 6 HOURS NEEDED FOR moderate pain max of FOUR PER day 06/25 completed Not Available Not Available Not Available duloxetin e 40 mg capsule,d elayed release take 1 capsule BY MOUTH EVERY DAY 11/05 completed Not Available Not Available Not Available duloxetin e 20 mg capsule,d elayed release sprinkle Take 1 capsule every day by oral route. 03/11 completed Not Available Not Available Not Available Gemtesa 75 mg tablet TAKE 1 TABLET BY MOUTH EVERY DAY 03/11 completed Not Available Not Available Not Available Vitals Date Recorded Body height Body mass index (BMI) Body weight Respiratory rate Heart rate Oxygen saturation Systolic And Diastolic Provider Name and Address Organization Details Last Updated DateTime 4 175.26 cm 39.7 kg/m2 173723. 35 g 22 /min 89 /min 96 % 146/74 mm[Hg] [facility] 4 13:46:40 Date Recorded Body height Body mass index (BMI) Body weight Respiratory rate Heart rate Oxygen saturation Systolic And Diastolic Provider Name and Address Organization Details Last Updated DateTime 4 175.26 cm 40 kg/m2 403960. 53 g 18 /min 100 /min 97 % 154/82 mm[Hg] [facility] 4 15:19:28 Date Recorded Body height Body mass index (BMI) Body weight Respiratory rate Heart rate Oxygen saturation Systolic And Diastolic Provider Name and Address Organization Details Last Updated DateTime 4 175.26 cm 39.6 kg/m2 602352. 76 g 20 /min 93 /min 94 % 150/70 mm[Hg] [facility] 4 12:32:04 Date Recorded Body height Body mass index (BMI) Body weight Respiratory rate Heart rate Oxygen saturation Systolic And Diastolic Provider Name and Address Organization Details Last Updated DateTime 4 175.26 cm 36.6 kg/m2 196041. 91 g 18 /min 90 /min 96 % 144/72 mm[Hg] [facility] 4 09:00:37 Date Recorded Body height Body mass index (BMI) Body weight Body temperature Heart rate Oxygen saturation Systolic And Diastolic Provider Name and Address Organization Details Last Updated DateTime 4 175.26 cm 36.6 kg/m2 485017. 91 g 97.9 [degF] 83 /min 98 % 146/78 mm[Hg] [facility] 11:06:24 Social History Question Answer Notes LastModified by [email or web address] Details LastModified Time Tobacco Smoking Status Unknown If Ever Smoked [facility] [place] 10/12/2022 10:56:54 Are You Blind Or Do You Have Difficulty Seeing? No [email or web address] Information not available 10/12/2022 Are You Deaf Or Do You Have Serious Difficulty Hearing? No [email or web address] Information not available 10/12/2022 Have You Had Direct Contact, Or Contact During Intimacy, With Monkeypox Rash, Scabs, Or Body Fluids From A Person With Monkeypox? No Information not available 10/12/2022 Have You Recently Traveled Abroad? No [email or web address] Information not available 10/12/2022 Do You Have Difficulty Walking Or Climbing Stairs? No [email or web address] Information not available 10/12/2022 Sex: Female Functional Status Question Answer Note LastModified by [email or web address] Details LastModified Time Are you able to walk independently without assistance or assistive devices? YESWOREST [email or web address] Information not available 10/12/2022 Do you have difficulty doing errands alone? No [email or web address] Information not available 10/12/2022 Are you able to care for yourself independently? Yes [email or web address] Information not available 10/12/2022 Do you have difficulty dressing, bathing, grooming, or toileting? No [email or web address] Information not available 10/12/2022 Mental Status Question Answer Note LastModified by Organization D etails LastModified Time Do you have difficulty concentrating, remembering or making decisions? No [email or web address] Information no t available 10/12/2022 Family History Nothing Reported. Medical History No medical history recorded. Gynecological HistoryNo gynecological history recorded. Obstetrics History GPAL:G 0 P 0 0 0 0 Past Encounters Encounter ID Performer Location Encounter Start Date Encounter Closed Date Diagnosis/Indication Diagnosis SNOMED-CT Code Diagnosis ICD10 Code Diagnosis IMO Codes Diagnosis Note [id number] Gallo Vogel DO [facility] ([facility]) [address] [place] [address] 10/12/2022 10:54:10 10/12/2022 17:05:10 Depressive disorder 29078945 F32.9 Complicated grieving 427 418618 F43.81 Osteoarthr itis of knee 676339569 M17.9 Numbness of finger 77034 6001 R20.0 [id number] Gallo Vogel DO [facility] ([facility]) [address] [place] [address] 11/23/2022 10:07:20 11/23/2022 12:20:36 Depressive disorder 88462684 F32.9 couldn't tolerate sertraline due to nightmares Hyperglycemia 60069256 R 73.9 a1c 6.3 last Fall and 6 at [facility] a couple weeks ago [id number] JOSEF MOLINA [facility] ([facility]) [address] [place] [address] 02/22/2023 10:34:20 02/22/2023 14:25:31 Dysuria 64604399 R30.0 Will re-check urine today per patient request as urologist requested she have urine re-evaluat ed. Normal UA today. Will culture urine per patient request. Nausea and vomiting 1692 1999 R11.2 Discussed with patient that Myrbetriq has side effects equivalent to her symptoms today. This medication also has a longer half life and I do not feel as if she stopped this medication long enough to see if symptoms resolved. Encouraged patient to stop medication for 5-7 days and see if this helps. If so, will need to follow up with urologist. If no improvemen t with this, should follow up with PCP. Patient is agreeable to this plan of care. Haydee AVALOS sent in for patient. If nausea and vomiting becomes severe, should go to ED. Patient verbalizes understand ing. [id number] Gallo Vogel DO [facility] ([facility]) [address] [place] [address] 06/26/2023 13:41:27 06/26/2023 15:41:28 Depressive disorder 71382949 F32.9 Restless l egs syndrome 29341836 G25.81 Osteoarthr itis of knee 739511555 M17.9 Pain in left foot 739205 2553 61743 M79.672 Spasm of back muscles 20 1166015 M62.688 [id number] Gallo Vogel DO [facility] ([facility]) [address] [place] [address] 09/11/2023 15:12:05 09/11/2023 15:56:16 Depressive disorder 48259762 F32.9 Trigger th umb of right hand 4534232364 36861 M65.311 Pain in left foot 992906 5853 58215 M79.672 Anemia 305376984 D64.9 Serum thyr oid stimulating hormone level outside reference range 827710643 R89.1 Hyperglycemia 90776389 R 73.9 a1c 6.3 last Fall and 6 at [facility] a couple weeks ago [id number] Gallo Vogel DO [facility] ([facility]) [address] [place] [address] 11/06/2023 12:27:32 11/06/2023 14:00:47 Depressive disorder 50068246 F32.9 Hyperglycemia 44724803 R 73.9 a1c 6.3 last Fall and 6 at [facility] a couple weeks ago [id number] Gallo Vogel DO [facility] ([facility]) [address] [place] [address] 12/13/2023 08:55:07 12/13/2023 09:40:20 Depressive disorder 89189544 F32.9 Hyperglycemia 75954541 R 73.9 Restless l egs syndrome 58444508 G25.81 Peritonsillar abscess 15 476000 J36 [id number] RAMIRO WILLINGHAM PA-C [facility] ([facility]) [address] [place] [address] 03/11/2024 10:48:43 03/11/2024 11:55:52 Closed injury of head 4235389109 06 S09.90XA due to decline and change in neurologic al function I advised pt to go to ER to get her head and neck CT scanned to rule fx and bleed. Neck pain [id number] M54.2 Paresthesi a of upper limb [id number] R20.2 Pain of left wrist 17366 [id number] 16180 M25.532 Accidental fall [id number] W19.XXXA Health Concerns Section Related Observation LastModified by Organization Detai ls LastModified Time None Recorded Concern Status LastModified by Organization Details LastModified Time None Recorded Advance Directives Directive None Recorded Payers Insurance Date Sequence Insurance Name Policy Number Policy Contreras Covered Member ID Contreras Member ID Guarantor Name 03/11/2024 1 [employer] [id number] Veronica Buitrago [id number] Veronica Buitrago 12/13/2023 1 [employer] (PPO) Veronica Buitrago [id number] Veronica Buitrago Notes Date Note Type Note Provider Name and Address Organization Details Recorded Time 4 text/html Anxiety/DepressionReported by PatientHPIFor severity, patient reportsmood worse,increased anxiety,no desire to continue living,interference with activities of daily living, andinterference with school. For context, patient reportsfamily problemsandrelationship stress. For associated symptoms, patient reportseating less,anxiety,hypersensitivi ty,depression,loneliness,gr ieving,insomnia,sleep disturbances,social withdrawal, anddecreased energybut reportsdenies homicidal ideations.ROS as noted in the [facility] Gallo DO Lela [address] [place] [address], [phone], [facility] 06/26/2023 14:07:08 4 text/html Anxiety/DepressionReported by PatientHPIFor severity, patient reportsmood worse,increased anxiety,no desire to continue living,interference with activities of daily living, andinterference with school. For context, patient reportsfamily problemsandrelationship stress. For associated symptoms, patient reportseating less,anxiety,hypersensitivi ty,depression,loneliness,gr ieving,insomnia,sleep disturbances,social withdrawal, anddecreased energybut reportsdenies homicidal ideations.ROS as noted in the [facility] Gallo VogelDO [address] [place] [address], [phone], [facility] 09/11/2023 15:37:31 4 text/html Anxiety/DepressionReported by PatientHPIFor severity, patient reportsmood worse,increased anxiety,no desire to continue living,interference with activities of daily living, andinterference with school. For context, patient reportsfamily problemsandrelationship stress. For associated symptoms, patient reportseating less,anxiety,hypersensitivi ty,depression,loneliness,gr ieving,insomnia,sleep disturbances,social withdrawal, anddecreased energybut reportsdenies homicidal ideations.ROS as noted in the [facility] Gallo Vogel DO [address] [place] [address], [phone], [facility] 11/06/2023 12:55:48 4 text/html Anxiety/DepressionReported by PatientHPIFor severity, patient reportsincreased anxiety. For context, patient reportsfamily problemsandrelationship stress. For associated symptoms, patient reportsanxiety,depression,l oneliness,grieving, anddecreased energybut reportsdenies homicidal ideations.ROS as noted in the [facility] Gallo Vogel DO [address] [place] [address], [phone], [facility] 12/13/2023 09:23:03 4 text/html walk in ptPt fell down 3 steps on and hurt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
--- OUTSIDE RECORDS SUMMARY | 2025-02-27 09:32 | XMS_ITS | Clinical Summary ---
Author Organization [facility] Address [address] 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
--- OUTSIDE RECORDS SUMMARY | 2025-02-27 09:32 | XMS_ITS | Encounter Summary ---
Author Organization [facility] Address [address] [place] [address] Care Team Providers Care Carbon Paper Coating Supervisor Name Role Phone Unavailable Primary Care Provider Unavailabl e Encounter Details Date Type Department Care Team (Latest Contact Info) Description 01/19/2006 Outpatient Historical [facility] 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
--- OUTSIDE RECORDS SUMMARY | 2025-02-27 09:32 | XMS_ITS | Encounter Summary ---
Author Organization [facility] Address [address] [place] [address] Care Team Providers Care Distiller Name Role Phone Unavailable Primary Care Provider Unavailabl e Encounter Details Date Type Department Care Team (Latest Contact Info) Description 01/27/[address]patient [address] 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
--- OUTSIDE RECORDS SUMMARY | 2025-02-27 09:32 | XMS_ITS | Encounter Summary ---
[facility] Organization [facility] Address [address] [place] [address] Care Team Providers Care Surface Lay Out Technician Name Role Phone Unavailable Primary Care Provider Unavailabl e Encounter Details Date Type Department Care Team (Latest Contact Info) Description 04/07/2003 Outpatient Historical [facility] Olivier Lyles MD [address] [place] [address] UNSPECIFIED VIRAL INFECTION (Primary Dx); ACUTE PHARYNGITIS; DEPRESS PSYCHOSIS-SEVERE (CMS/HCC) Social History Tobacco Use Types Packs/Day Years Used Date Smoking Tobacco: Never Assessed Comments Unknown Sex and Gender Information Value Date Recorded Sex Assigned at Not on file 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
== END 2025-02-27 09:25 | disposition home or self-care (01) ==
PROVIDERS: Emergency Provider Family Medicine; PCP Family Medicine
DX: S92.911A Unspecified fracture of right toe(s), initial encounter for closed fracture (principal); Z87.891 Personal history of nicotine dependence; W20.8XXA Other cause of strike by thrown, projected or falling object, initial encounter
CPT/HCPCS: 73630; 99283